=== PATIENT | male | born 1970 ===

== ENCOUNTER 2017-05-25 15:52 | Inpatient (IN) ==
--- NOTE | 2017-05-25 17:08 | Emergency Department Note ---
Lasha Andrea Manpreet, am scribing for, and in the presence of, Bogdan Ervin MD 16:53. Arcadio Andrea Charles R, MD, personally performed the services described in this documentation, ascribed by Emory Colby in my presence, and it is both accurate and complete 708 . Arrival - Arrival Chief Complaint: Nausea/Vomiting/Diarrhea ED Nursing Triage Note: Brought in by EMS c/o N/V-onset two days ago. Transfer from [facility] for further evaluation of pneumonia. Mode of Arrival: Stretcher Limitations: No Limitations Source: Patient Time Seen by Provider: 05/25/17 16:15 - History of Present Illness HPI Narrative: Pt is a 47 y/o male, with PMHx of HTN, CHF, IDDM, and NIDDM, who is transferred from [facility] for further evaluation for his PNA. Pt also c/o N/V onset two days ago and had a body temperature of 102 F when he went to [facility]. pt states he "ruben had diarrhea yesterday." Pt reports of breaking left foot in October and has a swollen left foot since. Pt's [facility]. Pt also c/o dry cough but denies SOB. Pt is on dialysis and goes MWF. No other pain/complaints reported to the ED. Onset (ago): day(s) (2 days ago) Allergies/Adverse Reactions: Allergies Allergy/AdvReac Type Severity Reaction Status Date / Time No Known Allergies Allergy Verified 05/25/17 16:00 Home Medications: Home Medications Medication Instructions Recorded Confirmed Type Metoprolol Succinate Xl [Toprol Xl] 50 mg PO DAILY #30 tablet 07/14/15 05/25/17 Rx Aspirin [Ecotrin] 81 mg PO QAM 09/09/15 05/25/17 History Pravastatin [Pravachol] 40 mg PO DAILY 09/09/15 05/25/17 History Sevelamer Carbonate Tab [Renvela 800 mg PO TID W/MEALS 04/21/16 05/25/17 History Tab] Review of System - Review of System 12 point system: reviewed and no additional remarkable complaints except as stated - Review of System Constitutional: Absent: chills, diaphoresis, fever (Temperature of 102 F when he went to [facility]) Respiratory: Absent: cough, respiratory distress, wheezing Cardiovascular: Absent: chest pain Gastrointestinal: Present: nausea, vomiting. Absent: abdominal pain, diarrhea Genitourinary male: Absent: dysuria Musculoskeletal: Absent: arm pain, back pain Skin: Absent: rash Neurological: Absent: headache, weakness, numbness, paresthesias Medical,Surgical,& Family Hx - Medical History Cardio: History of: CHF, Hypertension, Cardiovascular Problems (cardiomyopathy, NICM history of ) No history of: [place] Neurology: No history of: Seizures Endocrine: History of: Diabetes Mellitus (IDDM), Diabetes Mellitus (NIDDM) Rheumatology: No history of;: Rheumatoid Arthritis Respiratory: History of: Bronchitis, Obstructive Sleep Apnea, Pneumonia Renal: History of: Renal Failure No history of: Dialysis Genitourinary: No history of: Kidney Stones Musculoskeletal: No history of: Osteoporosis - Surgical History Cardiac Surgeries: Sugical HX of: Cardiac Catheterization Patient Denies: Cardiac Surgery Thoracic Surgeries: Patient denies;: Lobectomy Neurologic Surgeries: Patient denies: Neurologic Surgery HEENT Surgeries: Surgical HX of: Eye Surgery (had laser surgery on left eye for bleeding in eye), Tonsilectomy & Adenoidectomy Orthopedic Surgeries: Surgical HX of;: Orthopedic Surgery (R Foot) - Family History Family History: Reports;: Family Diabetes (Mother), Family Heart Disease (Mother ), Family Hypertension (Mother) Denies;: Family Anesthesia Reaction, Family Cancer, Family Psychiatric Problems, Family Stroke - Social History Smoking Status: Never smoker Frequency of Alcohol Use: None Type of Drug Use: None Exam Vital Signs: Vital Signs Temperature 98.9 F 05/25/17 15:56 Pulse Rate 90 05/25/17 15:56 Respiratory Rate 16 05/25/17 15:56 Blood Pressure 97/57 05/25/17 15:56 O2 Sat by Pulse Oximetry 96 05/25/17 15:56 - General General appearance: alert, in no apparent distress - Head Head exam: Present: atraumatic, normocephalic, normal inspection - Eye Eye exam: Present: normal appearance, PERRL, EOMI - ENT ENT exam: Present: normal exam, normal oropharynx, mucous membranes moist, TM's normal bilaterally - Neck Neck exam: Present: normal inspection, full ROM, trachea midline. Absent: tenderness - Chest Chest inspection: Present: normal inspection, symmetric chest wall rise. Absent : tenderness - Respiratory Respiratory exam: Present: normal lung sounds bilaterally. Absent: accessory muscle use, respiratory distress - Cardiovascular Cardiovascular exam: Present: regular rate, normal rhythm, normal heart sounds. Absent: murmur, rubs, gallop - Abdominal Exam Abdominal exam: Present: soft, normal bowel sounds. Absent: distention, tenderness, guarding - Extremities Exam Extremities exam: Present: normal inspection, full ROM, other (Increasing warm diabetic ulcer on bottom and top). Absent: tenderness - Back Exam Back exam: Present: normal inspection, full ROM. Absent: tenderness - Neurological Exam Neurological exam: Present: alert, oriented X3, CN II-XII intact, reflexes normal - Psychiatric Psychiatric exam: Present: normal affect, normal mood Course - Consultations Consultation #1: Hospitalist will admit patient Time: 17:01 Disposition Clinical Impression: Gastroenteritis, ESRD (end stage renal disease) on dialysis, Fever, Possible pneumonia, Generalized weakness, Nausea vomiting and diarrhea, Diabetic ulcer of left foot Case discussed with: patient Disposition: Still a Patient Condition: Stable Time of Disposition: 17:02
--- NOTE | 2017-05-25 17:42 | Hospitalist History & Physical ---
Assessment and Plan - Time spent with patient Time spent with patient: Greater than 30 minutes (1) Fever Status: Acute Assessment and plan: Patient has acute febrile illness. I do not see a distinct infiltrate on his chest x-ray however he has had a productive cough. He has been cultured and received IV Rocephin and [facility]. We will culture, hydrate for follow- up chest x-ray and continue antibiotic coverage. Current Visit: Yes (2) Diabetic ulcer of left foot Status: Chronic Assessment and plan: Patient has ulceration of the left foot. Will continue local care as well as IV antibiotics as noted above. At this time I see no fluctuance or drainage which would require any further intervention. Current Visit: Yes (3) Diabetes Status: Chronic Assessment and plan: Patient states he has diabetes mellitus but is currently on dietary measures only. Will place him on Accu-Cheks with sliding scale insulin. Current Visit: No Qualifiers: Diabetes mellitus type: type 2 Diabetes mellitus complication status: with kidney complications Diabetes mellitus complication detail: with nephropathy (4) Essential hypertension Status: Chronic Assessment and plan: Patient is currently well controlled and hemodynamically stable. Continue current medical regimen. Current Visit: No (5) ESRD (end stage renal disease) on dialysis Status: Chronic Assessment and plan: We will consult nephrology to assist with his hemodialysis while here. Current Visit: Yes History of Present Illness Chief complaint: Fever, nausea History of present illness: Mr. Higginbotham is a 47 year old male states that Monday he began feeling bad with a cough which been mildly productive of some yellowish phlegm along with some nausea, vomiting and poor appetite. He had dialysis yesterday and told him he did not feel good and he states they administered IV antibiotics at that time. Today he had fever up to approximately 102F went to [facility] where he was evaluated and ultimately transferred [facility] for possible community-acquired pneumonia. He has had a wound on the dorsum of his left foot as well as a callused ulceration plantar surface which he states are unchanged. He denies any chest pain, shortness breath, hematemesis, melena, hematochezia, dysuria, hematuria, urinary frequency urgency incontinence, diarrhea, constipation, focal motor weakness or paresthesias. He is on Monday hemodialysis and his winder helper is Dr. Mau Yu. He is a full code. Home Medications Medication Instructions Recorded Confirmed Type Metoprolol Succinate Xl [Toprol Xl] 50 mg PO DAILY #30 tablet 07/14/15 05/25/17 Rx Aspirin [Ecotrin] 81 mg PO QAM 09/09/15 05/25/17 History Pravastatin [Pravachol] 40 mg PO DAILY 09/09/15 05/25/17 History Sevelamer Carbonate Tab [Renvela 800 mg PO TID W/MEALS 04/21/16 05/25/17 History Tab] Allergies Allergy/AdvReac Type Severity Reaction Status Date / Time No Known Allergies Allergy Verified 05/25/17 16:00 Medical,Surgical,& Family Hx - Medical History Cardio: History of: CHF, Hypertension, Cardiovascular Problems (cardiomyopathy, NICM history of ) No history of: [place] Neurology: No history of: Seizures Endocrine: History of: Diabetes Mellitus (NIDDM) Rheumatology: No history of;: Rheumatoid Arthritis Respiratory: History of: Bronchitis, Obstructive Sleep Apnea, Pneumonia Renal: History of: Renal Failure No history of: Dialysis Genitourinary: No history of: Kidney Stones Musculoskeletal: No history of: Osteoporosis - Surgical History Cardiac Surgeries: Sugical HX of: Cardiac Catheterization Patient Denies: Cardiac Surgery Thoracic Surgeries: Patient denies;: Lobectomy Neurologic Surgeries: Patient denies: Neurologic Surgery HEENT Surgeries: Surgical HX of: Eye Surgery (had laser surgery on left eye for bleeding in eye), Tonsilectomy & Adenoidectomy Orthopedic Surgeries: Surgical HX of;: Orthopedic Surgery (R Foot) - Family History Family History: Reports;: Family Diabetes (Mother), Family Heart Disease (Mother ), Family Hypertension (Mother) Denies;: Family Anesthesia Reaction, Family Cancer, Family Psychiatric Problems, Family Stroke - Social History Smoking Status: Never smoker Frequency of Alcohol Use: None Type of Drug Use: None Marital Status: 12 point system: reviewed and no additional remarkable complaints except as stated Exam - Constitutional Vitals: Period Temp Pulse Resp BP Sys/Beth Pulse Ox Last 24 Hr 98.9 F-98.9 F 79-90 16-18 97-151/57-89 96-98 General appearance: no acute distress - Head Head exam: Present: normocephalic, atraumatic - Eye Eye exam: Present: EOMI. Absent: scleral icterus Pupils: Present: JJ - ENT ENT exam: Present: normal oropharynx - Neck Neck exam: Present: normal inspection. Absent: lymphadenopathy, meningismus, tenderness, thyromegaly - Respiratory Respiratory exam: Present: clear to auscultation bilaterally. Absent: rales, rhonchi, wheezes - Cardiovascular Cardiovascular exam: Present: regular rate and rhythm. Absent: systolic murmur , tachycardia - GI/Abdominal GI/Abdominal exam: Present: normal bowel sounds, soft. Absent: distended, mass , tenderness, rebound - Extremities Exam Extremities exam: Present: other (Small ulceration on the dorsum of the left foot with a dressing in place, no fluctuance or drainage detected. Callused ulceration on the plantar surface which is mildly tender to palpation without fluctuance or drainage detected). Absent: calf tenderness, edema - Neurological Exam Neurological exam: Present: alert, oriented X3, CN II-XII intact. Absent: motor sensory deficit - Psychiatric Psychiatric exam: Present: normal affect, normal mood. Absent: agitated, anxious - Skin Skin exam: Present: warm, dry Results - Labs Lab Results: I have reviewed the past 24 hour labs Labs: Laboratory studies from [facility] have been completely reviewed. - Diagnostic Findings Procedure: Chest x-ray: image reviewed by me
--- NOTE | 2017-05-25 17:50 | XRay Report ---
Left foot, 3 views. Indication: Diabetic foot ulcer. No previous study. Along the plantar aspect of the foot laterally there is a very large focus of soft tissue swelling with a central superficial ulcer. No radiodense foreign body is seen. There is generalized edema of the entire foot, and there is small vessel atherosclerotic disease as is seen with diabetes. There is pes planus. At the tarsal-metatarsal joints, there is subluxation and dense sclerosis and osteophyte formation. Along the plantar surface of the cuboid, there is cortical loss and irregularity consistent with active osteomyelitis. Impression: Prominent plantar foot ulceration, with a large focus of soft tissue swelling, with possible associated abscess. The cuboid demonstrates cortical loss suspicious for acute active osteomyelitis. There are findings suggesting neuropathic joint. There are subluxations, prominent sclerotic change, and malalignment at the tarsal-metatarsal joints. . This could be from an old Lisfranc injury or from neuropathic joint, or from chronic osteomyelitis. PROCEDURE INTERPRETED AT [facility] DEPARTMENT OF RADIOLOGY Final Report Signed by: Dr. Denice Walter
[2017-05-25] MEDS ORDERED: ONDANSETRON 4 MG/2 ML VIAL IV PRN (19:17)
[2017-05-25] MEDS ORDERED: LEVOFLOXACIN INJ 750 MG in PREMIX 1 EACH IV SCH (19:17)
[2017-05-25] MEDS ORDERED: DEXTROSE 50% 25 GM/50 ML SYRINGE IV PRN (19:17)
[2017-05-25] MEDS ORDERED: GLUCAGON 1 MG VIAL IM PRN (19:17)
[2017-05-25] MEDS ORDERED: PNEUMOCOCCAL VACCINE (13 VALENT) 0.5 ML SYRINGE IM ONE (19:54)
[2017-05-25 19:57] LABS: Calcium 7.1 MG/DL (8.5-10.1); Osmolality,Calculated 283.1 MOS/KG (273-304); Potassium 3.9 MMOL/L (3.5-5.1)
[2017-05-25] MEDS ORDERED: PIPERACILLIN/TAZOBACTAM 3,375 MG in SODIUM CHLORIDE 0.9% 50 ML IV SCH (21:00)
[2017-05-25] MEDS ORDERED: LEVOFLOXACIN INJ 750 MG in PREMIX 1 EACH IV ONE (21:00)
[2017-05-25] MEDS: ENOXAPARIN 30 MG/0.3 ML SYRINGE SUBCUT SCH (22:13)
[2017-05-25] MEDS: INSULIN LISPRO 100 UNIT/ML SUBCUT SCH (22:34)
[2017-05-26 06:54] LABS: Basophils # 0.1 10*3/uL (0.0-0.2); Basophils % 0.5 % (0.0-0.8); Eosinophils # 0.2 10*3/uL (0.0-0.87); Hematocrit 30.7 VOL% (42.0-52.0); Hemoglobin 10.5 GM/DL (14.0-18.0); Immature Granulocytes % 0.5 %; Immature Granulocytes Absolute 0.08 #; Lymphocytes # 1.3 10*3/uL (1.4-4.0); Lymphocytes % 7.7 % (21.2-54.2); Mean Corpuscular HGB Conc 34.2 GM/DL (32-36); Mean Corpuscular Hemoglobin 33 PG (27-34); Mean Corpuscular Volume 97.5 FL (87-102); Mean Platelet Volume 11.3 FL (9.6-12.0); Monocytes # 1.8 10*3/uL (0.11-0.8); Monocytes % 10.9 % (1.7-12.7); Neutrophils # 13.1 10*3/uL (1.4-7.4); Neutrophils % 79.4 % (38.7-73.9); Platelet Count 129 T/CUMM (130-400); Red Blood Count 3.15 MC/CUMM (3.8-5.5); Red Cell Distribution Width 14.9 % (9.3-17.3); White Blood Count 16.5 T/CUMM (4-12)
[2017-05-26 07:20] LABS: Calcium 7.5 MG/DL (8.5-10.1); Osmolality,Calculated 288.1 MOS/KG (273-304); Potassium 4.4 MMOL/L (3.5-5.1)
--- NOTE | 2017-05-26 07:33 | XRay Report ---
XR chest 2V Indication: Dialysis catheter Comparison: 21 April 2016 Findings: The heart and mediastinum are normal in size and configuration. Previous catheter is been removed. The pulmonary vascularity is normal in caliber. No lung infiltrates, effusions, pneumothorax or other abnormality is demonstrated. Impression: No acute cardiopulmonary findings. PROCEDURE INTERPRETED AT [facility] [place] DEPARTMENT OF RADIOLOGY Final Report Signed by: Dr. Kip Bojorquez
[2017-05-26] MEDS: PRAVASTATIN 40 MG TABLET PO SCH (08:53)
[2017-05-26] MEDS: SEVELAMER CARBONATE 800 MG TABLET PO SCH ×3 (08:53→18:23)
[2017-05-26] MEDS: ASPIRIN EC 81 MG TABLET PO SCH (08:53)
[2017-05-26] MEDS: INSULIN LISPRO 100 UNIT/ML SUBCUT SCH ×4 (08:54→21:01)
[2017-05-26] MEDS ORDERED: METOPROLOL SUCCINATE XL 50 MG TABLET PO SCH (09:00)
--- NOTE | 2017-05-26 10:54 | General Surgery Consult Note ---
Assessment and Plan - Time spent with patient Time spent with patient: Less than 30 minutes (1) Diabetic ulcer of left foot Status: Chronic Assessment and plan: Impression: Diabetic ulceration of the left foot with dark thick eschar doubt there is a underlying abscess but certainly needs debridement Plan: Start wound care and go ahead and do a debridement tomorrow Current Visit: Yes Qualifiers: Diabetes mellitus type: type 2 Non-pressure ulcer stage: unspecified non- pressure ulcer stage (2) Charcot foot due to diabetes mellitus Status: Acute Assessment and plan: Impression: Charcot foot deformity secondary to his diabetes of the left foot Plan: Doubt orthopedics can help us at this point will try to get the wounds cleaned up in case we need to do something different but we need to count to find a way to offload this leg as much possible Current Visit: Yes (3) Diabetic ulcer of right foot associated with diabetes mellitus due to underlying condition Status: Acute Assessment and plan: Impression: Diabetic ulcer right foot Plan: Debridement and wound care Current Visit: Yes Qualifiers: Diabetic foot ulcer location: midfoot Non-pressure ulcer stage: with fat layer exposed Qualified Code(s): E08.621 - Diabetes mellitus due to underlying condition with foot ulcer; L97.412 - Non-pressure chronic ulcer of right heel and midfoot with fat layer exposed (4) Chronic renal failure Status: Chronic Assessment and plan: Impression: Chronic renal failure dialysis patient Plan: Medical management Current Visit: No Qualifiers: Chronic kidney disease stage: stage 4 (severe) Qualified Code(s): N18.4 - Chronic kidney disease, stage 4 (severe) (5) Diabetes Status: Chronic Assessment and plan: Impression: Diabetes mellitus insulin-dependent Plan: Maintain good control and medical management Current Visit: No Qualifiers: Diabetes mellitus type: type 2 Diabetes mellitus complication status: with kidney complications Diabetes mellitus complication detail: with nephropathy History of Present Illness Chief complaint: Diabetic ulcer left foot and right foot History of present illness: Mr. Higginbotham is a 47 year old male diabetic dialysis patient who apparently developed some ulceration and chronic fracturing of his left foot back in October at which time they sent him to the wound care center in [place]. It is unclear why they went in that direction or so but apparently I cannot tell that he has had much care at this point. He clearly has evidence of a Charcot foot deformity with a plantar ulcer that is no has some swelling and not sure he has any abscess to it. This may just be soft tissues swelling but it has a dark thick eschar that certainly will not heal unless this is debrided. X-rays show a lot of old chronic fracturing there I do not think know that they really are truly done indicate that he has osteo-and that may have to be determined by an MRI. On further examination though there is an ulcer on the plantar surface of the right foot that was covered up and not easily seen and this may be a problem if we do not get this under control I get that area situated. There is no deformity of the right foot at this time but certainly potentially he could develop. He seems to have hair down to his ankles which suggest his circulation may be okay at this point will double check that to see how things will heal. Home Medications Medication Instructions Recorded Confirmed Type Metoprolol Succinate Xl [Toprol Xl] 50 mg PO DAILY #30 tablet 07/14/15 05/25/17 Rx Aspirin [Ecotrin] 81 mg PO QAM 09/09/15 05/25/17 History Pravastatin [Pravachol] 40 mg PO DAILY 09/09/15 05/25/17 History Sevelamer Carbonate Tab [Renvela 800 mg PO TID W/MEALS 04/21/16 05/25/17 History Tab] Allergies Allergy/AdvReac Type Severity Reaction Status Date / Time No Known Allergies Allergy Verified 05/25/17 16:00 Medical,Surgical,& Family Hx - Medical History Cardio: History of: CHF, Hypertension, Cardiovascular Problems (cardiomyopathy, NICM history of ) No history of: [place] Neurology: No history of: Seizures Endocrine: History of: Diabetes Mellitus (IDDM), Diabetes Mellitus (NIDDM) Rheumatology: No history of;: Rheumatoid Arthritis Respiratory: History of: Bronchitis, Obstructive Sleep Apnea, Pneumonia Renal: History of: Dialysis (last dialysis yesterday), Renal Failure Genitourinary: No history of: Kidney Stones Musculoskeletal: No history of: Osteoporosis - Surgical History Cardiac Surgeries: Sugical HX of: Cardiac Catheterization Patient Denies: Cardiac Surgery Thoracic Surgeries: Patient denies;: Lobectomy Neurologic Surgeries: Patient denies: Neurologic Surgery HEENT Surgeries: Surgical HX of: Eye Surgery (had laser surgery on left eye for bleeding in eye), Tonsilectomy & Adenoidectomy Orthopedic Surgeries: Surgical HX of;: Orthopedic Surgery (R Foot) - Family History Family History: Reports;: Family Diabetes (Mother), Family Heart Disease (Mother ), Family Hypertension (Mother) Denies;: Family Anesthesia Reaction, Family Cancer, Family Psychiatric Problems, Family Stroke - Social History Smoking Status: Never smoker Frequency of Alcohol Use: None Type of Drug Use: None 12 point system: reviewed and no additional remarkable complaints except as stated Exam - Constitutional Vitals: Period Temp Pulse Resp BP Sys/Beth Pulse Ox Last 24 Hr 98.3 F-99.2 F 78-90 16-19 97-160/57-96 93-98 General appearance: mild distress - Head Head exam: Present: normal inspection - ENT ENT exam: Present: normal exam - Neck Neck exam: Present: normal inspection - Respiratory Respiratory exam: Present: clear to auscultation bilaterally, rales - Cardiovascular Cardiovascular exam: Present: RRR - GI/Abdominal GI/Abdominal exam: Present: hypoactive bowel sounds, soft - Extremities Exam Extremities exam: Present: other (There is clubbing of the left foot with a large ulcer on the plantar surface lateral aspect with a dark thick eschar without erythematous changes or unusual drainage present. Right foot has an ulcer on her about the fourth metatarsal head that looks fairly clean without drainage at this time. There is hair on the legs down to the ankle at this time I think I can feel a 2+ pulse dorsalis pedis on the left foot.) - Back Exam Back exam: Present: normal inspection - Neurological Exam Neurological exam: Present: alert, oriented X3, CN II-XII intact - Skin Skin exam: Present: normal color, warm, dry Results - Labs CBC & BMP: 05/26/17 06:17 05/26/17 06:17 Lab Results: I have reviewed the past 24 hour labs
[2017-05-26] MEDS ORDERED: ceFAZolin 2,000 MG in PREMIX 1 EACH IV ONE (11:01)
--- NOTE | 2017-05-26 11:21 | EKG Report ---
Stationary ECG Study [facility] Test Date: 05/26/2017 11:19:05 AM Pat Name: HERNANDEZ STRAUSS Department: Room: 330 Gender: M Line Ordering Clinician: THERESA : 1970 Requested by: Devin Adame Order Number: [id number] Reading MD: ZARIA SANTOYO Intervals [place] Rate: 82 P: 62 AK: 150 QRS: -7 QRSD: 97 T: 126 QT: 411 QTc: 450 Interpretive Statements SINUS RHYTHM ST DEVIATION AND MODERATE T-WAVE ABNORMALITY, CONSIDER LATERAL ISCHEMIA Electronically Signed On 05-27-17 18:40:48 CDT by ZARIA SANTOYO [email or web address]
[2017-05-26] MEDS ORDERED: VANCOMYCIN INJ 1,000 MG in SODIUM CHLORIDE 0.9% 100 ML IV PRN (11:53)
--- NOTE | 2017-05-26 13:13 | Nephrology Consult Note ---
History of Present Illness Chief complaint: Fever and chills and a ESRD patient History of present illness: Mr. Higginbotham is a 47 year old male who dialyzes on a Monday basis in [facility]. Patient was admitted to the hospital today from [facility] for fever and chills and feeling poorly. The patient states he started to feel poorly about 4 days prior to his admission. He was having sweats and fever at 102. The patient has been getting some wound care for some ulcerations on his left foot that has multiple fractures that were sustained about 8 months ago. The patient has also developed a ulceration on his right foot. The patient has also had some associated headaches and cough. The patient states his cough is been nonproductive. Patient does not have a dialysis catheter in his neck he had one in several months ago. He currently dialyzes through a fistula in his forearm. ROS: Head -positive headaches ENT -positive sore throat Lymphatics - denies lymphadenopathy Hematology - denies bleeding problems Heart - denies chest pain Lungs - denies shortness of breath Abdomen - denies abdominal pain, he had some vomiting yesterday Musculoskeletal - denies arthritis, he complains of some soreness in his left leg Skin - denies rash Neurology - denies stroke General -positive fever PE: General: in no acute distress Eyes: Pupils are round and reactive, conjunctivae are clear ENT: Nose is clear, O/P is benign Neck: Supple, no thyromegaly Lymphatics: No cervical, supraclavicular or axillary adenopathy Heart: Regular rate and rhythm, trace pretibial edema on the left Lungs: Clear to auscultation anteriorly, chest expansion symmetric Abdomen: Soft, normoactive bowel sounds, no hepatomegaly Musculoskeletal: No joint erythema or effusions, he has 2 ulcerations on his left foot and one on the bottom of his right foot, his left foot is swollen and has some deformity Skin: Normal turgor, normal hydration, no rash Neuro/Psych: Alert and cooperative with fair insight Home Medications Medication Instructions Recorded Confirmed Type Metoprolol Succinate Xl [Toprol Xl] 50 mg PO DAILY #30 tablet 07/14/15 05/25/17 Rx Aspirin [Ecotrin] 81 mg PO QAM 09/09/15 05/25/17 History Pravastatin [Pravachol] 40 mg PO DAILY 09/09/15 05/25/17 History Sevelamer Carbonate Tab [Renvela 800 mg PO TID W/MEALS 04/21/16 05/25/17 History Tab] Allergies Allergy/AdvReac Type Severity Reaction Status Date / Time No Known Allergies Allergy Verified 05/25/17 16:00 Medical,Surgical,& Family Hx - Medical History Cardio: History of: CHF, Hypertension, Cardiovascular Problems (cardiomyopathy, NICM history of ) No history of: [place] Neurology: No history of: Seizures Endocrine: History of: Diabetes Mellitus (IDDM), Diabetes Mellitus (NIDDM) Rheumatology: No history of;: Rheumatoid Arthritis Respiratory: History of: Bronchitis, Obstructive Sleep Apnea, Pneumonia Renal: History of: Dialysis (last dialysis yesterday), Renal Failure Genitourinary: No history of: Kidney Stones Musculoskeletal: No history of: Osteoporosis - Surgical History Cardiac Surgeries: Sugical HX of: Cardiac Catheterization Patient Denies: Cardiac Surgery Thoracic Surgeries: Patient denies;: Lobectomy Neurologic Surgeries: Patient denies: Neurologic Surgery HEENT Surgeries: Surgical HX of: Eye Surgery (had laser surgery on left eye for bleeding in eye), Tonsilectomy & Adenoidectomy Orthopedic Surgeries: Surgical HX of;: Orthopedic Surgery (R Foot) - Family History Family History: Reports;: Family Diabetes (Mother), Family Heart Disease (Mother ), Family Hypertension (Mother) Denies;: Family Anesthesia Reaction, Family Cancer, Family Psychiatric Problems, Family Stroke - Social History Smoking Status: Never smoker Frequency of Alcohol Use: None Type of Drug Use: None Exam - Vital Signs Vital signs: Period Temp Pulse Resp BP Sys/Beth Pulse Ox Last 24 Hr 98.3 F-99.2 F 78-90 16-19 97-162/57-96 93-98 Results - Labs CBC & BMP: 05/26/17 06:17 05/26/17 06:17 Assessment and Plan (1) Charcot foot due to diabetes mellitus Status: Acute Assessment and plan: Management per Dr. Adame Current Visit: Yes (2) Diabetic ulcer of right foot associated with diabetes mellitus due to underlying condition Status: Acute Current Visit: Yes Qualifiers: Diabetic foot ulcer location: midfoot Non-pressure ulcer stage: with fat layer exposed Qualified Code(s): E08.621 - Diabetes mellitus due to underlying condition with foot ulcer; L97.412 - Non-pressure chronic ulcer of right heel and midfoot with fat layer exposed (3) Fever Status: Acute Assessment and plan: Agree with IV antibiotics Current Visit: Yes (4) Generalized weakness Status: Acute Current Visit: Yes (5) ESRD (end stage renal disease) on dialysis Status: Chronic Assessment and plan: We will continue hemodialysis support on a Monday basis. Current Visit: Yes (6) Secondary hyperparathyroidism Status: Acute Current Visit: No (7) Diabetes Status: Chronic Current Visit: No Qualifiers: Diabetes mellitus type: type 2 Diabetes mellitus complication status: with kidney complications Diabetes mellitus complication detail: with nephropathy (8) Essential hypertension Status: Chronic Current Visit: No
[2017-05-26] MEDS: PIPERACILLIN/TAZOBACTAM 3,375 MG in SODIUM CHLORIDE 0.9% 100 ML IV SCH ×2 (13:39→13:54)
--- NOTE | 2017-05-26 14:11 | Hospitalist Progress Note ---
Assessment and Plan - Time spent with patient Time spent with patient: Less than 30 minutes (1) Congestive heart failure Status: Chronic Assessment and plan: 47-year-old male with history of diabetes, hypertension, Charcot foot, end-stage renal disease on hemodialysis admitted by the hospitalist on 05/25/2017 through the emergency room as a transfer from [facility] with what was thought to be pneumonia. Patient was having fever and elevated white count but he does not have pneumonia. He does have a left Charcot deformity with multiple ulcers and probable abscess. X-ray of the foot shows possible associated abscess on the plantar aspect with cortical loss suspicious for acute active osteomyelitis and neuropathic joint. Dr. Adame from surgery has been consulted and is taking him to the OR in the morning for debridement. May need eventual assistance from orthopedic surgery for evaluation of his Charcot foot. Patient is on Zosyn and vancomycin. Dr. Yu from nephrology has also been consulted so patient can dialyze from fistula on Monday. Patient's blood sugars are under decent control here by sliding scale insulin. Diabetes educators have been in to discuss diet plan with him. Patient's blood pressures have also been elevated and he is on Toprol 50 mg p.o. daily. Will discuss this with Dr. Swanson to see if she wants to increase this or add further medication. Dr. Swanson will see and examine patient and further recommendations to follow. Current Visit: No Qualifiers: Congestive heart failure type: systolic Congestive heart failure chronicity : acute on chronic Qualified Code(s): I50.23 - Acute on chronic systolic ( congestive) heart failure (2) Diabetes Status: Chronic Current Visit: No Qualifiers: Diabetes mellitus type: type 2 Diabetes mellitus complication status: with kidney complications Diabetes mellitus complication detail: with nephropathy (3) Essential hypertension Status: Chronic Current Visit: No (4) ESRD (end stage renal disease) on dialysis Status: Chronic Current Visit: Yes (5) Diabetic ulcer of left foot Status: Chronic Current Visit: Yes Qualifiers: Diabetes mellitus type: type 2 Non-pressure ulcer stage: unspecified non- pressure ulcer stage (6) Charcot foot due to diabetes mellitus Status: Acute Current Visit: Yes Hospitalist: Subjective Interval history: Patient states he feels okay and he is being educated as we speak by diabetes educators. He seems to be enthralled with her information and wants to do better. He states both of his lower extremities are numb and he gets shooting pains in his right foot sometimes. Exam - Constitutional Vitals: Period Temp Pulse Resp BP Sys/Beth Pulse Ox Last 24 Hr 98.3 F-99.2 F 78-90 16-19 97-162/57-96 93-98 Exam: 47-year-old male, no acute distress, alert and oriented Chest clear CV regular rate and rhythm Abdomen soft nontender Extremities no edema right foot, left foot with Charcot deformity and plantar and dorsal wounds noted. Results - Labs CBC & BMP: 05/26/17 06:17 05/26/17 06:17 Lab Results: I have reviewed the past 24 hour labs Quality Measures - VTE Contraindication to Pharmacological VTE Prophylaxis: Clinical assessment deems Pt at low risk, no prophalaxis needed Contraindication to Mechanical VTE Prophylaxis: Local Inflammation
--- NOTE | 2017-05-26 14:41 | Dialysis Note ---
Dialysis Note - Dialysis Note Patient seen on hemodialysis he is tolerating this well will continue his treatment unchanged.
[2017-05-26] MEDS: GABAPENTIN 100 MG CAPSULE PO SCH ×2 (15:03→21:03)
[2017-05-26] MEDS ORDERED: VANCOMYCIN INJ 2,000 MG in SODIUM CHLORIDE 0.9% 500 ML IV ONE (18:00)
[2017-05-26] MEDS: ENOXAPARIN 30 MG/0.3 ML SYRINGE SUBCUT SCH (19:50)
[2017-05-26] MEDS: METOPROLOL SUCCINATE XL 50 MG TABLET PO SCH (21:04)
[2017-05-26] MEDS: ACETAMINOPHEN 325 MG TABLET PO PRN (21:04)
[2017-05-27] MEDS: PIPERACILLIN/TAZOBACTAM 3,375 MG in SODIUM CHLORIDE 0.9% 100 ML IV SCH ×2 (01:07→12:46)
[2017-05-27 06:01] LABS: Basophils # 0.1 10*3/uL (0.0-0.2); Basophils % 0.7 % (0.0-0.8); Eosinophils # 0.5 10*3/uL (0.0-0.87); Eosinophils % 3.1 % (0.00-10.9); Hematocrit 32.5 VOL% (42.0-52.0); Hemoglobin 11.2 GM/DL (14.0-18.0); Immature Granulocytes % 0.5 %; Immature Granulocytes Absolute 0.08 #; Lymphocytes # 1.6 10*3/uL (1.4-4.0); Mean Corpuscular HGB Conc 34.5 GM/DL (32-36); Mean Corpuscular Hemoglobin 34 PG (27-34); Mean Corpuscular Volume 97.9 FL (87-102); Mean Platelet Volume 11.1 FL (9.6-12.0); Monocytes # 1.6 10*3/uL (0.11-0.8); Monocytes % 10.8 % (1.7-12.7); Neutrophils # 10.9 10*3/uL (1.4-7.4); Neutrophils % 73.9 % (38.7-73.9); Platelet Count 151 T/CUMM (130-400); Red Blood Count 3.32 MC/CUMM (3.8-5.5); Red Cell Distribution Width 14.7 % (9.3-17.3); White Blood Count 14.8 T/CUMM (4-12)
[2017-05-27 06:24] LABS: INR 1.1; Partial Thromboplastin Time 37.6 SECS (0-40)
[2017-05-27 06:53] LABS: Albumin 2.3 G/DL (3.4-5.0); Bilirubin,Total 0.9 MG/DL (0.2-1.0); Calcium 8.1 MG/DL (8.5-10.1); Potassium 4.5 MMOL/L (3.5-5.1); Total Protein 7.5 G/DL (6.4-8.3)
[2017-05-27] MEDS: METOPROLOL SUCCINATE XL 50 MG TABLET PO SCH ×2 (07:50→20:41)
[2017-05-27] MEDS: SEVELAMER CARBONATE 800 MG TABLET PO SCH ×3 (08:00→17:12)
[2017-05-27] MEDS: INSULIN LISPRO 100 UNIT/ML SUBCUT SCH ×4 (08:04→20:42)
[2017-05-27] MEDS: SODIUM CHLORIDE 0.9% 1,000 ML IV SCH (08:27)
[2017-05-27] MEDS: GABAPENTIN 100 MG CAPSULE PO SCH ×3 (09:00→20:42)
[2017-05-27] MEDS ORDERED: HYDROmorphone 2 MG/1 ML VIAL IV PRN (09:10)
[2017-05-27] MEDS ORDERED: CHLORHEXIDINE 4% SOLN 118 ML BOTTLE TOP ONE (09:15)
--- NOTE | 2017-05-27 09:27 | Operative Note ---
Date of procedure: 05/27/17 Pre-op diagnosis: Diabetic ulcer left and right feet Post-op diagnosis: other (Diabetic ulcer left foot with deep space abscess diabetic ulcer right foot/) Procedure: Operative note: Preoperative diagnosis: 1. Diabetic ulcer plantar surface lateral aspect left foot with Charcot's deformity 2. Diabetic ulceration third metatarsal head plantar surface right foot Postoperative diagnosis: 1. Diabetic ulceration left foot with deep space abscess 2. Diabetic ulceration right foot Procedure: 1. Excisional debridement of diabetic ulcer left foot of skin deep space necrotic and infected subcutaneous tissue and fascia 2. Excisional debridement of skin subtenons tissue ulcer of the right foot Surgeon Dr. Adame Anesthesia general Brief history: 47-year-old [place] male diabetic dialysis patient who comes in with a marked area of swelling on the lateral aspect of the left foot with a necrotic diabetic ulcer with thick callus about it. He has Charcot's deformity of the foot with underlying multiple little fractures seen on his x-rays. There is a fair amount of prominence underneath this ulcer and is difficult to know whether this is just chronic swollen tissue or whether this represents infection in this area. No clear erythematous changes present that we are seeing on the foot at this time. He also has an ulcer under the about the third metatarsal head of the right foot plantar surface that has some callus about it but does not look very deep at this time. Procedure: With patient in supine position prepped and draped in a sterile fashion timeout and antibiotics completed we approach this area of the ulcer of the left foot the pre-debridement measures 2 x 2 x 0 cm. The ulcer on the right foot measures 1 x 0.8 x 0.2 cm in size. At this point I approach the area of the left foot that has a deformity and this large ulcer present with a good necrotic area in it. At that point time will begin to shave a little callus off this image then as I began to remove the thick dark eschar we encountered some purulent drainage that we then cultured with swabs. I then debrided this skin and necrotic subtenons tissue here encountering some deep infected necrotic fatty tissue. I continue to debride with the scissors this deep fatty tissue encountered some more purulence onto the lateral aspect of it. I debrided that tissue to I did not see any further drainage at this point debriding little fascia on that side. Once we had debrided all this area then washed irrigated with saline solution use light cauterization control bleeding. We now have a wound that is 3 x 3 x 2 cm in size. There is little eschar on the medial dorsum of the foot that I just carefully removed we just small rale superficial area underneath. At that point I like to go ahead and dressed these by putting a Dakin's wet fluff into this large ulcer of the plantar surface and just some bacitracin on the dorsum of the foot. We then wrapped it up with a cast padding Covan. Next moved to the right foot with the ulcer under the plantar surface. At this point I took the knife and just begin debride that callus down and away until I could see the ulcer clearly. There was some necrotic skin edges that I then took a knife and debrided around as well as some necrotic fatty granulating tissue in the base of this ulcer that we debrided away to get a good clean base at this time. At that point this look clean and dry and the post debridement ulcer on the right was 1 x 0.6 x 0.3 cm in size. We then put bacitracin Xeroform and wrapped this up with cast padding Covan. Patient was taken recovery room. Estimated blood loss was 15 cc Sponge count correct 2 Drains none Complications none Condition stable satisfactory Surgeon / Physician: Devin Adame Estimated blood loss: other (15 cc) Specimens: other (Swab and tissue cultures) Condition: stable Disposition: floor Results - Labs CBC & BMP: 05/27/17 04:44 05/27/17 04:44 Discharge Plan - Discharge Medications No Action Metoprolol Succinate Xl [Toprol Xl] 50 mg PO DAILY #30 tablet Pravastatin [Pravachol] 40 mg PO DAILY Aspirin [Ecotrin] 81 mg PO QAM Sevelamer Carbonate Tab [Renvela Tab] 800 mg PO TID W/MEALS - Follow Up or Referral - Forms/Instructions
--- NOTE | 2017-05-27 11:42 | Hospitalist Progress Note ---
<Samara Leigh - Last Filed: 05/27/17 11:39> Assessment and Plan - Time spent with patient Time spent with patient: Less than 30 minutes (1) Congestive heart failure Status: Chronic Assessment and plan: 47-year-old male with history of diabetes, hypertension, Charcot foot, end-stage renal disease on hemodialysis admitted by the hospitalist on 05/25/2017 through the emergency room as a transfer from the [facility] with what was thought to be pneumonia. Patient was having fever and elevated white count but he does not have pneumonia. He does have a left Charcot deformity with multiple ulcers and probable abscess. X-ray of the foot shows possible associated abscess on the plantar aspect with cortical loss suspicious for acute active osteomyelitis and neuropathic joint. Dr. Adame from surgery has been consulted and is taking him to the OR in the morning for debridement. May need eventual assistance from orthopedic surgery for evaluation of his Charcot foot. Patient is on Zosyn and vancomycin. Dr. Yu from nephrology has also been consulted so patient can dialyze from fistula on Monday. Patient's blood sugars are under decent control here by sliding scale insulin. Diabetes educators have been in to discuss diet plan with him. Patient's blood pressures have also been elevated and he is on Toprol 50 mg p.o. daily. Will discuss this with Dr. Swanson to see if she wants to increase this or add further medication. Dr. Swanson will see and examine patient and further recommendations to follow. 05/27/2017 Mr. Higginbotham just returned from surgery by Dr. Adame this morning. He had debridement of diabetic ulcer of the left foot and he found a deep space necrotic and infected subcutaneous tissue and fascia. He also debrided a right foot ulcer as well. Patient is afebrile and his vital signs are stable. His white count is down to 14.8 and his blood sugars are doing well. Blood culture so far are negative, wound cultures are pending. Dr. Swanson will see and examine patient and further recommendations to follow. Current Visit: No Qualifiers: Congestive heart failure type: systolic Congestive heart failure chronicity : acute on chronic Qualified Code(s): I50.23 - Acute on chronic systolic ( congestive) heart failure (2) Diabetes Status: Chronic Current Visit: No Qualifiers: Diabetes mellitus type: type 2 Diabetes mellitus complication status: with kidney complications Diabetes mellitus complication detail: with nephropathy (3) Essential hypertension Status: Chronic Current Visit: No (4) ESRD (end stage renal disease) on dialysis Status: Chronic Current Visit: Yes (5) Diabetic ulcer of left foot Status: Chronic Current Visit: Yes Qualifiers: Diabetes mellitus type: type 2 Non-pressure ulcer stage: unspecified non- pressure ulcer stage (6) Charcot foot due to diabetes mellitus Status: Acute Current Visit: Yes Hospitalist: Subjective Interval history: Patient still a little groggy from surgery. No complaints this morning. Exam - Constitutional Vitals: Period Temp Pulse Resp BP Sys/Beth Pulse Ox Last 24 Hr 97.3 F-101.1 F 65-80 14-20 85-136/52-78 95-99 Exam: 47-year-old male, no acute distress, alert and oriented Chest clear CV regular rate and rhythm Abdomen soft nontender Extremities right and left foot with surgical dressings clean and dry Results - Labs CBC & BMP: 05/27/17 04:44 05/27/17 04:44 Lab Results: I have reviewed the past 24 hour labs Quality Measures - VTE Contraindication to Pharmacological VTE Prophylaxis: Clinical assessment deems Pt at low risk, no prophalaxis needed Contraindication to Mechanical VTE Prophylaxis: Local Inflammation <Prudence Swanson - Last Filed: 05/27/17 17:23> Hospitalist: Subjective Interval history: Patient had no new complaints. Exam - Constitutional Vitals: Period Temp Pulse Resp BP Sys/Beth Pulse Ox Last 24 Hr 97.3 F-101.1 F 65-80 14-20 85-136/47-78 95-100 Results - Labs CBC & BMP: 05/27/17 04:44 05/27/17 04:44
--- NOTE | 2017-05-27 12:38 | Nephrology Progress Note ---
Nephrology - PN: Subj Interval history: Patient denies shortness of breath. Review of systems GI denies nausea or vomiting, musculoskeletal-patient status post debridement of his foot wounds Physical exam general the patient is in no acute distress Assessment/plan 1. End-stage renal disease continue hemodialysis 2. Febrile illness-patient status post exploration of his foot wounds he was noted to have an abscess in 1 of his wounds he continues on IV bionics 3. Diabetes mellitus this is controlled 4. Hypertension this is controlled Exam (PN)-Nephrology - Vital Signs Vital signs: Period Temp Pulse Resp BP Sys/Beth Pulse Ox Last 24 Hr 97.3 F-101.1 F 65-80 14-20 85-136/52-78 95-99 - Lab 05/27/17 04:44 05/27/17 04:44 Most recent lab results Calcium 8.1 MG/DL (8.5-10.1) L 05/27/17 04:44 Assessment and Plan (1) Charcot foot due to diabetes mellitus Status: Acute Assessment and plan: Management per Dr. Adame Current Visit: Yes (2) Diabetic ulcer of right foot associated with diabetes mellitus due to underlying condition Status: Acute Current Visit: Yes Qualifiers: Diabetic foot ulcer location: midfoot Non-pressure ulcer stage: with fat layer exposed Qualified Code(s): E08.621 - Diabetes mellitus due to underlying condition with foot ulcer; L97.412 - Non-pressure chronic ulcer of right heel and midfoot with fat layer exposed (3) Fever Status: Acute Assessment and plan: Agree with IV antibiotics Current Visit: Yes (4) Generalized weakness Status: Acute Current Visit: Yes (5) ESRD (end stage renal disease) on dialysis Status: Chronic Assessment and plan: We will continue hemodialysis support on a Monday basis. Current Visit: Yes (6) Secondary hyperparathyroidism Status: Acute Current Visit: No (7) Diabetes Status: Chronic Current Visit: No Qualifiers: Diabetes mellitus type: type 2 Diabetes mellitus complication status: with kidney complications Diabetes mellitus complication detail: with nephropathy (8) Essential hypertension Status: Chronic Current Visit: No
[2017-05-27] MEDS: ASPIRIN EC 81 MG TABLET PO SCH (12:45)
[2017-05-27] MEDS: PRAVASTATIN 40 MG TABLET PO SCH (12:46)
--- NOTE | 2017-05-27 12:53 | Anesthesia Post-Op ---
Anesthesia Post OP - Post Ansesthetic Evaluation Patient seen in post op: Yes Resp: within normal limits CV: within normal limits Mental: within normal limits Temp: within normal limits [id number]: within normal limits Nausea and Vomiting: within normal limits Pain: within normal limits
[2017-05-27] MEDS ORDERED: PROPOFOL 200 MG/20 ML VIAL IV ONE (12:55)
[2017-05-27] MEDS ORDERED: ONDANSETRON 4 MG/2 ML VIAL ONE (12:55)
[2017-05-27] MEDS ORDERED: ACETAMINOPHEN 1,000 MG/100 ML VIAL IV ONE (12:56)
[2017-05-27] MEDS ORDERED: SEVOFLURANE 1 UNIT/15 MINUTE INH ONE (12:58)
[2017-05-27] MEDS: ceFAZolin 2,000 MG in PREMIX 1 EACH IV SCH ×2 (17:05→23:50)
[2017-05-27] MEDS: ENOXAPARIN 30 MG/0.3 ML SYRINGE SUBCUT SCH (20:42)
[2017-05-27] MEDS ORDERED: LEVOFLOXACIN INJ 500 MG in PREMIX 1 EACH IV SCH (21:00)
[2017-05-28] MEDS: PIPERACILLIN/TAZOBACTAM 3,375 MG in SODIUM CHLORIDE 0.9% 100 ML IV SCH ×2 (00:52→12:04)
[2017-05-28 04:37] LABS: Basophils # 0.1 10*3/uL (0.0-0.2); Basophils % 0.6 % (0.0-0.8); Eosinophils # 0.6 10*3/uL (0.0-0.87); Eosinophils % 4.3 % (0.00-10.9); Hematocrit 30.4 VOL% (42.0-52.0); Hemoglobin 10.3 GM/DL (14.0-18.0); Immature Granulocytes % 0.4 %; Immature Granulocytes Absolute 0.06 #; Lymphocytes # 1.6 10*3/uL (1.4-4.0); Lymphocytes % 11.7 % (21.2-54.2); Mean Corpuscular HGB Conc 33.9 GM/DL (32-36); Mean Corpuscular Hemoglobin 33 PG (27-34); Mean Corpuscular Volume 97.7 FL (87-102); Mean Platelet Volume 11.4 FL (9.6-12.0); Monocytes # 1.4 10*3/uL (0.11-0.8); Monocytes % 9.7 % (1.7-12.7); Neutrophils # 10.2 10*3/uL (1.4-7.4); Neutrophils % 73.3 % (38.7-73.9); Platelet Count 179 T/CUMM (130-400); Red Blood Count 3.11 MC/CUMM (3.8-5.5); Red Cell Distribution Width 14.6 % (9.3-17.3)
[2017-05-28 05:00] LABS: Calcium 7.2 MG/DL (8.5-10.1); Osmolality,Calculated 287.1 MOS/KG (273-304); Potassium 5.1 MMOL/L (3.5-5.1)
[2017-05-28] MEDS: INSULIN LISPRO 100 UNIT/ML SUBCUT SCH ×4 (07:52→20:34)
[2017-05-28] MEDS: SEVELAMER CARBONATE 800 MG TABLET PO SCH ×3 (08:52→16:44)
[2017-05-28] MEDS: METOPROLOL SUCCINATE XL 50 MG TABLET PO SCH ×2 (08:53→20:29)
[2017-05-28] MEDS: PANTOPRAZOLE 40 MG TABLET PO SCH (08:53)
[2017-05-28] MEDS: GABAPENTIN 100 MG CAPSULE PO SCH ×3 (08:53→20:28)
[2017-05-28] MEDS: ASPIRIN EC 81 MG TABLET PO SCH (08:53)
[2017-05-28] MEDS: PRAVASTATIN 40 MG TABLET PO SCH (08:53)
--- NOTE | 2017-05-28 09:24 | Nephrology Progress Note ---
Nephrology - PN: Subj Interval history: Patient is without complaints Physical exam general he is in no acute distress Assessment/plan 1. End-stage renal disease 2. Febrile illness-we will continue antibiotics 3. Diabetic foot disease-patient status post debridement of his foot wound, he was found to have an abscess during the debridement procedure. Exam (PN)-Nephrology - Vital Signs Vital signs: Period Temp Pulse Resp BP Sys/Beth Pulse Ox Last 24 Hr 98.2 F-100.0 F 65-80 14-19 96-143/47-78 89-100 - Lab 05/28/17 03:41 05/28/17 03:41 Most recent lab results Calcium 7.2 MG/DL (8.5-10.1) L 05/28/17 03:41 Assessment and Plan (1) Charcot foot due to diabetes mellitus Status: Acute Assessment and plan: Management per Dr. Adame Current Visit: Yes (2) Diabetic ulcer of right foot associated with diabetes mellitus due to underlying condition Status: Acute Current Visit: Yes Qualifiers: Diabetic foot ulcer location: midfoot Non-pressure ulcer stage: with fat layer exposed Qualified Code(s): E08.621 - Diabetes mellitus due to underlying condition with foot ulcer; L97.412 - Non-pressure chronic ulcer of right heel and midfoot with fat layer exposed (3) Fever Status: Acute Assessment and plan: Agree with IV antibiotics Current Visit: Yes (4) Generalized weakness Status: Acute Current Visit: Yes (5) ESRD (end stage renal disease) on dialysis Status: Chronic Assessment and plan: We will continue hemodialysis support on a Monday basis. Current Visit: Yes (6) Secondary hyperparathyroidism Status: Acute Current Visit: No (7) Diabetes Status: Chronic Current Visit: No Qualifiers: Diabetes mellitus type: type 2 Diabetes mellitus complication status: with kidney complications Diabetes mellitus complication detail: with nephropathy (8) Essential hypertension Status: Chronic Current Visit: No
--- NOTE | 2017-05-28 10:12 | Event Note ---
05/28/2017 1000 hrs. Patient generally is doing fairly well but I can tell he is probably been up on the foot to the sitting up in a chair and is a little bit of staining on the bottom of the left foot. Encouraged him not to be up and we try to get him to bring the boot that he has from home to look at and see what adjustments we need to make to it. He will need a Darco postop shoe on the right also they will need to level off at this time. We will get physical therapy involved to count to help him ambulate a little bit better and keep some pressure off this forefoot at this time. Cultures are pending and wound care starting today at this time.
[2017-05-28] MEDS ORDERED: SKIN HEALING OINT (AQUAPHOR) 50 GM TUBE TOP PRN (10:59)
[2017-05-28] MEDS: SODIUM CHLORIDE 0.9% 1,000 ML IV SCH (12:04)
--- NOTE | 2017-05-28 12:55 | Hospitalist Progress Note ---
Assessment and Plan - Time spent with patient Time spent with patient: Less than 30 minutes (1) Congestive heart failure Status: Chronic Assessment and plan: 47-year-old male with history of diabetes, hypertension, Charcot foot, end-stage renal disease on hemodialysis admitted by the hospitalist on 05/25/2017 through the emergency room as a transfer from the [facility] with what was thought to be pneumonia. Patient was having fever and elevated white count but he does not have pneumonia. He does have a left Charcot deformity with multiple ulcers and probable abscess. X-ray of the foot shows possible associated abscess on the plantar aspect with cortical loss suspicious for acute active osteomyelitis and neuropathic joint. Dr. Adame from surgery has been consulted and is taking him to the OR in the morning for debridement. May need eventual assistance from orthopedic surgery for evaluation of his Charcot foot. Patient is on Zosyn and vancomycin. Dr. Yu from nephrology has also been consulted so patient can dialyze from fistula on Monday. Patient's blood sugars are under decent control here by sliding scale insulin. Diabetes educators have been in to discuss diet plan with him. Patient's blood pressures have also been elevated and he is on Toprol 50 mg p.o. daily. Will discuss this with Dr. Swanson to see if she wants to increase this or add further medication. Dr. Swanson will see and examine patient and further recommendations to follow. 05/27/2017 Mr. Higginbotham just returned from surgery by Dr. Adame this morning. He had debridement of diabetic ulcer of the left foot and he found a deep space necrotic and infected subcutaneous tissue and fascia. He also debrided a right foot ulcer as well. Patient is afebrile and his vital signs are stable. His white count is down to 14.8 and his blood sugars are doing well. Blood culture so far are negative, wound cultures are pending. Dr. Swanson will see and examine patient and further recommendations to follow. 05/28/2017 patient seems to be doing well. He is being evaluated for Darco shoes so he can ambulate. He will have physical therapy evaluate him in the morning for assistive device. He did run a mild low-grade fever this morning but this seems to have resolved and his vital signs are stable. His white blood cell count is now down to 14 and his blood sugars look good. His cultures are growing gram-positive cocci but sensitivities are pending. Dr. Swanson will see and examine patient and further recommendations to follow. Current Visit: No Qualifiers: Congestive heart failure type: systolic Congestive heart failure chronicity : acute on chronic Qualified Code(s): I50.23 - Acute on chronic systolic ( congestive) heart failure (2) Diabetes Status: Chronic Current Visit: No Qualifiers: Diabetes mellitus type: type 2 Diabetes mellitus complication status: with kidney complications Diabetes mellitus complication detail: with nephropathy (3) Essential hypertension Status: Chronic Current Visit: No (4) ESRD (end stage renal disease) on dialysis Status: Chronic Current Visit: Yes (5) Diabetic ulcer of left foot Status: Chronic Current Visit: Yes Qualifiers: Diabetes mellitus type: type 2 Non-pressure ulcer stage: unspecified non- pressure ulcer stage (6) Charcot foot due to diabetes mellitus Status: Acute Current Visit: Yes Hospitalist: Subjective Interval history: Mr. Higginbotham feels okay today. His is supposed to bring his shoe so Dr. Adame can evaluate it and see if he needs a new one. Exam - Constitutional Vitals: Period Temp Pulse Resp BP Sys/Beth Pulse Ox Last 24 Hr 97.7 F-100.0 F 66-73 16-20 115-143/58-76 89-98 Exam: 47-year-old male, no acute distress, alert and oriented Chest clear CV regular rate and rhythm Abdomen soft nontender Extremities right dorsal foot wound clean, left dorsal wound with no erythema or purulence noted Results - Labs CBC & BMP: 05/28/17 03:41 05/28/17 03:41 Lab Results: I have reviewed the past 24 hour labs Quality Measures - VTE Contraindication to Pharmacological VTE Prophylaxis: Clinical assessment deems Pt at low risk, no prophalaxis needed Contraindication to Mechanical VTE Prophylaxis: Local Inflammation
[2017-05-28] MEDS: SODIUM HYPOCHLORITE 0.25% IRRIG 473 ML BOTTLE TOP SCH (14:05)
[2017-05-28] MEDS: BACITRACIN OINT 0.9 GM PACK TOP SCH (14:05)
[2017-05-28] MEDS: ENOXAPARIN 30 MG/0.3 ML SYRINGE SUBCUT SCH (20:29)
[2017-05-29] MEDS: PIPERACILLIN/TAZOBACTAM 3,375 MG in SODIUM CHLORIDE 0.9% 100 ML IV SCH ×3 (00:28→23:07)
[2017-05-29] MEDS: ACETAMINOPHEN 325 MG TABLET PO PRN (00:28)
[2017-05-29] MEDS: INSULIN LISPRO 100 UNIT/ML SUBCUT SCH ×4 (07:12→20:28)
[2017-05-29] MEDS: SEVELAMER CARBONATE 800 MG TABLET PO SCH ×3 (08:38→17:04)
[2017-05-29] MEDS: PRAVASTATIN 40 MG TABLET PO SCH (09:30)
[2017-05-29] MEDS: SODIUM HYPOCHLORITE 0.25% IRRIG 473 ML BOTTLE TOP SCH (09:30)
[2017-05-29] MEDS: BACITRACIN OINT 0.9 GM PACK TOP SCH (09:30)
[2017-05-29] MEDS: FLUTICASONE 50 MCG NASAL SPRAY 16 GM BOTTLE BOTH NARES SCH (09:30)
[2017-05-29] MEDS: PANTOPRAZOLE 40 MG TABLET PO SCH (09:30)
[2017-05-29] MEDS: ASPIRIN EC 81 MG TABLET PO SCH (09:30)
[2017-05-29] MEDS: GABAPENTIN 100 MG CAPSULE PO SCH ×3 (09:30→20:38)
[2017-05-29] MEDS: SODIUM CHLORIDE 0.9% 1,000 ML IV SCH (09:31)
[2017-05-29] MEDS: METOPROLOL SUCCINATE XL 50 MG TABLET PO SCH ×2 (09:31→20:38)
--- NOTE | 2017-05-29 10:02 | Event Note ---
05/29/2017. Patient is and dialysis at this time so have not had a chance to look at the foot and see where we stand on at this point.
[2017-05-29] MEDS ORDERED: VANCOMYCIN INJ 750 MG in SODIUM CHLORIDE 0.9% 250 ML IV PRN (10:30)
--- NOTE | 2017-05-29 11:12 | Hospitalist Progress Note ---
Assessment and Plan (1) Charcot foot due to diabetes mellitus Status: Acute Assessment and plan: s/p Excisional debridement of diabetic ulcer left foot of skin deep space necrotic and infected subcutaneous tissue and fascia and excisional debridement of skin subtenons tissue ulcer of the right foot WC grew Staph aureus. Plan Continue with IV antibiotics Follow Surgery's recommendations Continue wound care Current Visit: Yes (2) Diabetes Status: Chronic Assessment and plan: HbA1c- 6.7. Continue current regime. Current Visit: No Qualifiers: Diabetes mellitus type: type 2 Diabetes mellitus complication status: with kidney complications Diabetes mellitus complication detail: with nephropathy (3) Essential hypertension Status: Chronic Assessment and plan: will add Lisinopril 5mg daily, follow response Current Visit: No (4) End stage renal disease Status: Acute Assessment and plan: For HD session today Current Visit: No (5) Congestive heart failure Status: Chronic Assessment and plan: stable Current Visit: No Qualifiers: Congestive heart failure type: systolic Congestive heart failure chronicity : acute on chronic Qualified Code(s): I50.23 - Acute on chronic systolic ( congestive) heart failure Hospitalist: Subjective Interval history: Patient went for vascular studies and had dialysis session afterwards. He has no new complaints. Exam - Constitutional Vitals: Period Temp Pulse Resp BP Sys/Beth Pulse Ox Last 24 Hr 97.7 F-99.3 F 66-78 18-20 129-146/66-79 91-98 General appearance: no acute distress - Head Head exam: Present: normal inspection - Respiratory Respiratory exam: Present: clear to auscultation bilaterally - Cardiovascular Cardiovascular exam: Present: regular rate and rhythm - GI/Abdominal GI/Abdominal exam: Present: normal bowel sounds - Extremities Exam Extremities exam: Present: other (bilateral foot bandaged) Results - Labs CBC & BMP: 05/28/17 03:41 05/28/17 03:41 Lab Results: I have reviewed the past 24 hour labs Quality Measures - VTE Contraindication to Pharmacological VTE Prophylaxis: Clinical assessment deems Pt at low risk, no prophalaxis needed Contraindication to Mechanical VTE Prophylaxis: Local Inflammation
[2017-05-29] MEDS: LISINOPRIL 5 MG TABLET PO SCH (11:38)
--- NOTE | 2017-05-29 13:11 | Nephrology Progress Note ---
Nephrology - PN: Subj Interval history: Patient is without complaints Physical exam general he is in no acute distress Assessment/plan 1. End-stage renal disease 2. Diabetic foot disease continue wound care 3. Fever continue antibiotics 4. Hypertension Exam (PN)-Nephrology - Vital Signs Vital signs: Period Temp Pulse Resp BP Sys/Beth Pulse Ox Last 24 Hr 98.2 F-99.3 F 69-78 18-18 135-146/68-79 91-96 - Lab 05/28/17 03:41 05/28/17 03:41 Most recent lab results Calcium 7.2 MG/DL (8.5-10.1) L 05/28/17 03:41 Assessment and Plan (1) Charcot foot due to diabetes mellitus Status: Acute Assessment and plan: Management per Dr. Adame Current Visit: Yes (2) Diabetic ulcer of right foot associated with diabetes mellitus due to underlying condition Status: Acute Current Visit: Yes Qualifiers: Diabetic foot ulcer location: midfoot Non-pressure ulcer stage: with fat layer exposed Qualified Code(s): E08.621 - Diabetes mellitus due to underlying condition with foot ulcer; L97.412 - Non-pressure chronic ulcer of right heel and midfoot with fat layer exposed (3) Fever Status: Acute Assessment and plan: Agree with IV antibiotics Current Visit: Yes (4) Generalized weakness Status: Acute Current Visit: Yes (5) ESRD (end stage renal disease) on dialysis Status: Chronic Assessment and plan: We will continue hemodialysis support on a Monday basis. Current Visit: Yes (6) Secondary hyperparathyroidism Status: Acute Current Visit: No (7) Diabetes Status: Chronic Current Visit: No Qualifiers: Diabetes mellitus type: type 2 Diabetes mellitus complication status: with kidney complications Diabetes mellitus complication detail: with nephropathy (8) Essential hypertension Status: Chronic Current Visit: No
[2017-05-29] MEDS ORDERED: VANCOMYCIN INJ 750 MG in SODIUM CHLORIDE 0.9% 250 ML IV ONE (14:00)
[2017-05-29] MEDS ORDERED: diphenhydrAMINE CAP 25 MG CAPSULE PO PRN (14:44)
[2017-05-29] MEDS: ENOXAPARIN 30 MG/0.3 ML SYRINGE SUBCUT SCH (20:39)
--- NOTE | 2017-05-30 07:05 | Nephrology Progress Note ---
Nephrology - PN: Subj Interval history: Patient denies shortness of breath. Review of systems GI denies nausea or vomiting Physical exam general the patient is in no acute distress Assessment/plan 1. End-stage renal disease-we will continue hemodialysis 2. Fever-we will continue antibiotics 3. Diabetic foot disease-patient status post incision and drainage of foot wound 4. Hypertension this control 5. Diabetes mellitus this is controlled Exam (PN)-Nephrology - Vital Signs Vital signs: Period Temp Pulse Resp BP Sys/Beth Pulse Ox Last 24 Hr 97.8 F-99.0 F 72-87 14-20 131-185/68-93 95-97 - Lab 05/28/17 03:41 05/28/17 03:41 Most recent lab results Calcium 7.2 MG/DL (8.5-10.1) L 05/28/17 03:41 Assessment and Plan (1) Charcot foot due to diabetes mellitus Status: Acute Assessment and plan: Management per Dr. Adame Current Visit: Yes (2) Diabetic ulcer of right foot associated with diabetes mellitus due to underlying condition Status: Acute Current Visit: Yes Qualifiers: Diabetic foot ulcer location: midfoot Non-pressure ulcer stage: with fat layer exposed Qualified Code(s): E08.621 - Diabetes mellitus due to underlying condition with foot ulcer; L97.412 - Non-pressure chronic ulcer of right heel and midfoot with fat layer exposed (3) Fever Status: Acute Assessment and plan: Agree with IV antibiotics Current Visit: Yes (4) Generalized weakness Status: Acute Current Visit: Yes (5) ESRD (end stage renal disease) on dialysis Status: Chronic Assessment and plan: We will continue hemodialysis support on a Monday basis. Current Visit: Yes (6) Secondary hyperparathyroidism Status: Acute Current Visit: No (7) Diabetes Status: Chronic Current Visit: No Qualifiers: Diabetes mellitus type: type 2 Diabetes mellitus complication status: with kidney complications Diabetes mellitus complication detail: with nephropathy (8) Essential hypertension Status: Chronic Current Visit: No
[2017-05-30] MEDS: INSULIN LISPRO 100 UNIT/ML SUBCUT SCH ×4 (08:32→20:38)
--- NOTE | 2017-05-30 08:32 | General Surgery Progress Note ---
Assessment and Plan (1) Diabetic ulcer of left foot Status: Chronic Assessment and plan: Impression: Diabetic ulceration of the left foot with dark thick eschar doubt there is a underlying abscess but certainly needs debridement Plan: Start wound care and go ahead and do a debridement tomorrow 05/30/2017. Patient is afebrile at this time his wounds continue to look in good shape. The right foot ulcer is healing nicely and we need to stay on top of that because we need to get this from completely healed as soon as possible. The ulcer on the left foot that there is still deep but looks like no necrotic tissue that I am seeing and no unusual drainage present. I think we need to maintain good wound care to try to keep as much weight off this part of the foot as possible. He could benefit from a biological of possibly hyloMatrix. His cultures are back I think we could probably treat him with some Cipro but he is also be a candidate for getting Diovan's as a one-time shot to chronic try to get this process under good control. I think he is wanting to consider going home and we can try to see if we can get [facility] to pepper picker in care for his wounds keep him clean at this time given a chance to fill in. Could need a skin graft was hard to tell at this point. Patient is still receiving dialysis and we get physical therapy going to get him functional at this time. We will get social service to look at him a little bit here to see what we can set up for him as an outpatient get this process under control. Current Visit: Yes Qualifiers: Diabetes mellitus type: type 2 Non-pressure ulcer stage: unspecified non- pressure ulcer stage (2) Charcot foot due to diabetes mellitus Status: Acute Assessment and plan: Impression: Charcot foot deformity secondary to his diabetes of the left foot Plan: Doubt orthopedics can help us at this point will try to get the wounds cleaned up in case we need to do something different but we need to count to find a way to offload this leg as much possible Current Visit: Yes (3) Diabetic ulcer of right foot associated with diabetes mellitus due to underlying condition Status: Acute Assessment and plan: Impression: Diabetic ulcer right foot Plan: Debridement and wound care Current Visit: Yes Qualifiers: Diabetic foot ulcer location: midfoot Non-pressure ulcer stage: with fat layer exposed Qualified Code(s): E08.621 - Diabetes mellitus due to underlying condition with foot ulcer; L97.412 - Non-pressure chronic ulcer of right heel and midfoot with fat layer exposed (4) Chronic renal failure Status: Chronic Assessment and plan: Impression: Chronic renal failure dialysis patient Plan: Medical management Current Visit: No Qualifiers: Chronic kidney disease stage: stage 4 (severe) Qualified Code(s): N18.4 - Chronic kidney disease, stage 4 (severe) (5) Diabetes Status: Chronic Assessment and plan: Impression: Diabetes mellitus insulin-dependent Plan: Maintain good control and medical management Current Visit: No Qualifiers: Diabetes mellitus type: type 2 Diabetes mellitus complication status: with kidney complications Diabetes mellitus complication detail: with nephropathy Subjective Patient reports: Present: no new complaints, tolerating a regular diet, afebrile Exam - Constitutional Vitals: Period Temp Pulse Resp BP Sys/Beth Pulse Ox Last 24 Hr 97.8 F-99.0 F 69-87 14-20 131-185/68-93 94-97 General appearance: mild distress - Head Head exam: Present: normal inspection - ENT ENT exam: Present: normal exam - Neck Neck exam: Present: normal inspection - Respiratory Respiratory exam: Present: clear to auscultation bilaterally, rales - Cardiovascular Cardiovascular exam: Present: RRR - GI/Abdominal GI/Abdominal exam: Present: normal bowel sounds, soft - Extremities Exam Extremities exam: Present: other (Ulcer of the right foot looks clean and dry and may respond quickly this is fairly superficial. The wound and ulcer of the left foot is deep is clean did not see or detect any further necrotic tissue or draining tissue at this time. She has continued deformity with chronic swelling of the foot is noted.) - Back Exam Back exam: Present: normal inspection - Neurological Exam Neurological exam: Present: alert, oriented X3, CN II-XII intact - Skin Skin exam: Present: normal color Results - Labs CBC & BMP: 05/28/17 03:41 05/28/17 03:41 Lab Results: I have reviewed the past 24 hour labs Quality Measures - VTE Contraindication to Pharmacological VTE Prophylaxis: Clinical assessment deems Pt at low risk, no prophalaxis needed Contraindication to Mechanical VTE Prophylaxis: Local Inflammation
[2017-05-30] MEDS: GABAPENTIN 100 MG CAPSULE PO SCH ×3 (08:33→20:39)
[2017-05-30] MEDS: ASPIRIN EC 81 MG TABLET PO SCH (08:33)
[2017-05-30] MEDS: SODIUM HYPOCHLORITE 0.25% IRRIG 473 ML BOTTLE TOP SCH (08:33)
[2017-05-30] MEDS: LISINOPRIL 5 MG TABLET PO SCH (08:33)
[2017-05-30] MEDS: SEVELAMER CARBONATE 800 MG TABLET PO SCH ×3 (08:33→16:52)
[2017-05-30] MEDS: METOPROLOL SUCCINATE XL 50 MG TABLET PO SCH ×2 (08:33→20:40)
[2017-05-30] MEDS: PANTOPRAZOLE 40 MG TABLET PO SCH (08:33)
[2017-05-30] MEDS: PRAVASTATIN 40 MG TABLET PO SCH (08:33)
[2017-05-30] MEDS: BACITRACIN OINT 0.9 GM PACK TOP SCH (08:33)
[2017-05-30] MEDS: FLUTICASONE 50 MCG NASAL SPRAY 16 GM BOTTLE BOTH NARES SCH (08:33)
[2017-05-30] MEDS ORDERED: LEVOFLOXACIN 500 MG TABLET PO ONE (09:00)
[2017-05-30] MEDS: SODIUM CHLORIDE 0.9% 1,000 ML IV SCH (10:34)
--- NOTE | 2017-05-30 13:22 | Hospitalist Progress Note ---
Assessment and Plan (1) Charcot foot due to diabetes mellitus Status: Acute Assessment and plan: s/p Excisional debridement of diabetic ulcer left foot of skin deep space necrotic and infected subcutaneous tissue and fascia and excisional debridement of skin subtenons tissue ulcer of the right foot WC grew Staph aureus. Plan Continue with IV antibiotics. patient will go home on the one time dose of IV dalvance in am Follow Surgery's recommendations Continue wound care Current Visit: Yes (2) Diabetes Status: Chronic Assessment and plan: HbA1c- 6.7. Continue current regime. Current Visit: No Qualifiers: Diabetes mellitus type: type 2 Diabetes mellitus complication status: with kidney complications Diabetes mellitus complication detail: with nephropathy (3) Essential hypertension Status: Chronic Assessment and plan: stable Current Visit: No (4) End stage renal disease Status: Acute Assessment and plan: For HD session today Current Visit: No (5) Congestive heart failure Status: Chronic Assessment and plan: stable Current Visit: No Qualifiers: Congestive heart failure type: systolic Congestive heart failure chronicity : acute on chronic Qualified Code(s): I50.23 - Acute on chronic systolic ( congestive) heart failure Hospitalist: Subjective Interval history: Patient seen this am, he has no new complaint. He is being arranged to get Dalvance as outpatient. Exam - Constitutional Vitals: Period Temp Pulse Resp BP Sys/Beth Pulse Ox Last 24 Hr 97.8 F-99.5 F 68-87 14-20 131-185/68-93 94-97 General appearance: no acute distress - Head Head exam: Present: normal inspection - Respiratory Respiratory exam: Present: clear to auscultation bilaterally - Cardiovascular Cardiovascular exam: Present: regular rate and rhythm - GI/Abdominal GI/Abdominal exam: Present: normal bowel sounds - Extremities Exam Extremities exam: Present: other (bilateral leg bandaged) - Neurological Exam Neurological exam: Present: alert, oriented X3 Results - Labs CBC & BMP: 05/28/17 03:41 05/28/17 03:41 Lab Results: I have reviewed the past 24 hour labs Quality Measures - VTE Contraindication to Pharmacological VTE Prophylaxis: Clinical assessment deems Pt at low risk, no prophalaxis needed Contraindication to Mechanical VTE Prophylaxis: Local Inflammation
[2017-05-30] MEDS: ENOXAPARIN 30 MG/0.3 ML SYRINGE SUBCUT SCH (20:40)
[2017-05-31 07:00] VITALS: BP 148/77
--- NOTE | 2017-05-31 07:09 | Discharge Summary ---
Hospital Course - Hospital Course Hospital Course: Mr. Higginbotham is a 47 year old male who has a history of ESRD on HD, DM who presented with cough and fever.He was treated at dialysis, a day prior to presentation but fever worsened to 102F.Upon arrival,a wound on the dorsum of his left foot as well as a callused ulceration plantar surface which he states was unchanged, CXR showed no acute changes.He was started on broad spectrum antibiotics with IV Vanc, Zosyn .Surgery was consulted.X-ray of the foot shows possible associated abscess on the plantar aspect with cortical loss suspicious for acute active osteomyelitis and neuropathic joint.He had debridement of diabetic ulcer of the left foot and he found a deep space necrotic and infected subcutaneous tissue and fascia. He also debrided a right foot ulcer as well.Nephrology was consulted and he had sessions of dialysis.His wound grew staph aureus and Zosyn was subsequently dcd and po Levaquin was added. His diabetes was tightly controlled and he had some teachings.Wound was also being dressed. He has been scheduled to have an outpatient IV Dalvance, correctional case manager is also working on a knee walker. His vitals are stable, he will go home after his session of dialysis today. He will follow up with PCP in 1week and Suregery as scheduled. Diagnosis - Discharge Diagnosis (1) Charcot foot due to diabetes mellitus Status: Acute (2) Diabetes Status: Chronic (3) Essential hypertension Status: Chronic (4) End stage renal disease Status: Acute (5) Congestive heart failure Status: Chronic Discharge Plan - Discharge Data Disposition: Disch To Home/Self Care Condition at Discharge: Stable Discharge Diet: diabetic diet Activity: resume usual activities as tolerated - Discharge Medications New Acetaminophen Tab [Tylenol Tab] 325 mg PO Q4H PRN tablet PRN Reason: fever, headache/body aches Dalbavancin [Dalvance] 1,125 mg IV ONCE #1 vial Fluticasone 50 Mcg Nasal [place] [Flonase Nasal [place]] 2 spray BOTH NARES DAILY spray HYDROcodone/ACETAMIN 5-325 [[place] 5-325] 1 tablet PO Q4H PRN #20 tablet PRN Reason: Pain Mild (1-3) Levofloxacin Tab [Levaquin Tab] 250 mg PO Q48H #20 tablet Lisinopril [Prinivil] 5 mg PO DAILY #30 tablet Skin Healing Oint (Aquaphor) [Aquaphor] 1 applic TOP PRN PRN applic PRN Reason: Dry Skin Sodium Hypochlorite 0.25% Irr [Dakins 1/2 Strength 0.25% Soln] 1 applic TOP DAILY applic Gabapentin Cap/Tab [Neurontin Cap/Tab] 100 mg PO TID #20 capsule Pantoprazole Tab [Protonix Tab] 40 mg PO DAILY #30 tablet Insulin Glargine [Lantus] 10 unit SUBCUT BEDTIME #10 ml Insulin Lispro [HumaLOG] See Protocol SUBCUT ACHS unit Continue Metoprolol Succinate Xl [Toprol Xl] 50 mg PO DAILY #30 tablet Pravastatin [Pravachol] 40 mg PO DAILY Aspirin [Ecotrin] 81 mg PO QAM Sevelamer Carbonate Tab [Renvela Tab] 800 mg PO TID W/MEALS - Follow Up or Referral - Forms/Instructions Additional Discharge Instructions: Follow with PCP in 1week. Follow with suregry as scheduled Exam - Constitutional Vitals: Period Temp Pulse Resp BP Sys/Beth Pulse Ox Last 24 Hr 98.1 F-99.5 F 68-78 18-20 123-162/65-89 94-97 General appearance: no acute distress - Head Head exam: Present: normal inspection - Respiratory Respiratory exam: Present: clear to auscultation bilaterally - Cardiovascular Cardiovascular exam: Present: regular rate and rhythm - GI/Abdominal GI/Abdominal exam: Present: normal bowel sounds - Extremities Exam Extremities exam: Present: other (both legs bandaged) - Neurological Exam Neurological exam: Present: alert, oriented X3 Discharge Results Procedures and tests throughout hospitalization: Pending Orders 05/26/17 15:50 Wound Culture Routine Labs on day of discharge: Labs from last 24 hours 05/31/17 05/30/17 05/30/17 04:54 19:09 10:50 POC Glucose 131 H 157 H Random Vancomycin 26.1 DS: Provider Date of admission: 05/25/17 17:00 Primary care physician: Nuria Pearl MD Attending physician on admission: Rosalind Keith MD Consults: 05/25/17 19:17 Consult to Pharmacy [CONS] Routine Reason for Pharmacy Consult: Adjust Meds Renal Funct Consult to Physician [CONS] Routine Comment: ESRD Consulting Provider: Jhony Yu Consulting Provider Notified: Yes When should Consulting Provider be notified: Now Person Notified: Erendira called Date Notified: 05/26/17 Time Notified: 08:15 05/25/17 19:38 Consult to Pastoral Services [CONS] Routine Comment: Pastoral Screen: Request Executive Coordinator Visit Pastoral Screen Source of Request: Patient 05/26/17 08:56 Consult to Physician [CONS] Routine Comment: Consulting Provider: Devin Adame Consulting Provider Notified: Yes When should Consulting Provider be notified: Now Consult to Specialist Group: Surgery When should Consulting Provider be notified: Now Person Notified: Dr Adame called Date Notified: 05/26/17 Time Notified: 09:42 Consult Notification Comment: 05/26/17 11:03 Consult to Anesthesiology [CONS] Routine Consulting Provider: Reason for Anesthesiology: Pre-op Clearance 05/26/17 11:16 Consult to Diabetes Center, Educator [CONS] Routine Reason for Core Cutter: Diabetes Education 05/26/17 11:18 Consult to Pharmacy [CONS] Routine Reason for Pharmacy Consult: Dose/Manage Vancomycin 05/26/17 14:16 Consult to Dietitian [CONS] Routine Reason for Dietitian: Other Consult Comment: no concentrated sweets 05/27/17 09:10 Consult to Wound Care - [place] [CONS] Routine Reason for Wound Care: Wound Care Management Consult Comment: Wound care to the feet 05/27/17 09:14 Consult to Case Mgmt/Social Srvs [CONS] Routine Reason for Case Mgmt/Social Srvs: Discharge Planning Consult Comment: Home health or [facility] 05/28/17 10:13 Consult to Physical Therapy [CONS] Routine Reason for Physical Therapy: Evaluate and Treat Ambulation Other Start Therapy: Tomorrow Consult Comment: To ambulate with walker but consider a knee walker for the left Discharging clinician: Prudence Swanson MD
[2017-05-31] MEDS: INSULIN LISPRO 100 UNIT/ML SUBCUT SCH ×2 (08:20→11:18)
[2017-05-31] MEDS: SEVELAMER CARBONATE 800 MG TABLET PO SCH ×2 (08:21→13:34)
--- NOTE | 2017-05-31 08:35 | General Surgery Progress Note ---
Assessment and Plan - Time spent with patient Time spent with patient: Less than 30 minutes (1) Diabetic ulcer of left foot Status: Chronic Assessment and plan: Impression: Diabetic ulceration of the left foot with dark thick eschar doubt there is a underlying abscess but certainly needs debridement Plan: Start wound care and go ahead and do a debridement tomorrow 05/30/2017. Patient is afebrile at this time his wounds continue to look in good shape. The right foot ulcer is healing nicely and we need to stay on top of that because we need to get this from completely healed as soon as possible. The ulcer on the left foot that there is still deep but looks like no necrotic tissue that I am seeing and no unusual drainage present. I think we need to maintain good wound care to try to keep as much weight off this part of the foot as possible. He could benefit from a biological of possibly hyloMatrix. His cultures are back I think we could probably treat him with some Cipro but he is also be a candidate for getting Diovan's as a one-time shot to chronic try to get this process under good control. I think he is wanting to consider going home and we can try to see if we can get [facility] to pepper picker in care for his wounds keep him clean at this time given a chance to fill in. Could need a skin graft was hard to tell at this point. Patient is still receiving dialysis and we get physical therapy going to get him functional at this time. We will get social service to look at him a little bit here to see what we can set up for him as an outpatient get this process under control. 05/31/2017 Wounds on the right foot are progressing fairly nicely and should heal up without too much problems if we can keep pressure off of him. The ulcer of the left foot is improving got a good bit of depth to it and a HyloMatrix might be beneficial in hip and this feeling and although may require wound VAC to keep it in place. Have discussed situation with [facility] and they should be aware that he is coming and they will evaluate the wounds as to what can he can be done for the wound care. I will follow him up again about 3 weeks to see how he is progressing as see if it is going to require skin graft at some point. Current Visit: Yes Qualifiers: Diabetes mellitus type: type 2 Non-pressure ulcer stage: unspecified non- pressure ulcer stage (2) Charcot foot due to diabetes mellitus Status: Acute Assessment and plan: Impression: Charcot foot deformity secondary to his diabetes of the left foot Plan: Doubt orthopedics can help us at this point will try to get the wounds cleaned up in case we need to do something different but we need to count to find a way to offload this leg as much possible Current Visit: Yes (3) Diabetic ulcer of right foot associated with diabetes mellitus due to underlying condition Status: Acute Assessment and plan: Impression: Diabetic ulcer right foot Plan: Debridement and wound care Current Visit: Yes Qualifiers: Diabetic foot ulcer location: midfoot Non-pressure ulcer stage: with fat layer exposed Qualified Code(s): E08.621 - Diabetes mellitus due to underlying condition with foot ulcer; L97.412 - Non-pressure chronic ulcer of right heel and midfoot with fat layer exposed (4) Chronic renal failure Status: Chronic Assessment and plan: Impression: Chronic renal failure dialysis patient Plan: Medical management Current Visit: No Qualifiers: Chronic kidney disease stage: stage 4 (severe) Qualified Code(s): N18.4 - Chronic kidney disease, stage 4 (severe) (5) Diabetes Status: Chronic Assessment and plan: Impression: Diabetes mellitus insulin-dependent Plan: Maintain good control and medical management Current Visit: No Qualifiers: Diabetes mellitus type: type 2 Diabetes mellitus complication status: with kidney complications Diabetes mellitus complication detail: with nephropathy Subjective Patient reports: Present: feels better, pain is less, tolerating a regular diet , afebrile Exam - Constitutional Vitals: Period Temp Pulse Resp BP Sys/Beth Pulse Ox Last 24 Hr 98.0 F-99.5 F 68-78 18-20 123-162/65-89 95-97 General appearance: no acute distress - Head Head exam: Present: normal inspection - ENT ENT exam: Present: normal exam Mouth exam: Present: normal external inspection - Neck Neck exam: Present: normal inspection - Respiratory Respiratory exam: Present: clear to auscultation bilaterally - Cardiovascular Cardiovascular exam: Present: RRR - GI/Abdominal GI/Abdominal exam: Present: hypoactive bowel sounds, soft - Extremities Exam Extremities exam: Present: other (Wounds are clean at this point time no sign of any gross infection.) - Back Exam Back exam: Present: normal inspection - Neurological Exam Neurological exam: Present: alert, oriented X3, CN II-XII intact - Skin Skin exam: Present: normal color, warm, dry Results - Labs CBC & BMP: 05/28/17 03:41 05/28/17 03:41 Lab Results: I have reviewed the past 24 hour labs Quality Measures - VTE Contraindication to Pharmacological VTE Prophylaxis: Clinical assessment deems Pt at low risk, no prophalaxis needed Contraindication to Mechanical VTE Prophylaxis: Local Inflammation Specialty Discharge - Follow Up or Referrals Follow up with: Devin Adame MD [Physician] - 1 Month
[2017-05-31] MEDS: FLUTICASONE 50 MCG NASAL SPRAY 16 GM BOTTLE BOTH NARES SCH (09:00)
--- NOTE | 2017-05-31 09:18 | Dialysis Note ---
Dialysis Note - Dialysis Note Patient seen on dialysis tolerated the procedure. Blood pressure 148/77. Cardiovascular regular rate. Lungs clear to auscultation.
[2017-05-31] MEDS ORDERED: VANCOMYCIN INJ 500 MG in SODIUM CHLORIDE 0.9% 100 ML IV ONE (12:00)
[2017-05-31] MEDS: ASPIRIN EC 81 MG TABLET PO SCH (13:31)
[2017-05-31] MEDS: GABAPENTIN 100 MG CAPSULE PO SCH (13:32)
[2017-05-31] MEDS: PRAVASTATIN 40 MG TABLET PO SCH (13:32)
[2017-05-31] MEDS: LISINOPRIL 5 MG TABLET PO SCH (13:32)
[2017-05-31] MEDS: PANTOPRAZOLE 40 MG TABLET PO SCH (13:33)
[2017-05-31] MEDS: METOPROLOL SUCCINATE XL 50 MG TABLET PO SCH (13:33)
[2017-05-31] MEDS: SODIUM HYPOCHLORITE 0.25% IRRIG 473 ML BOTTLE TOP SCH (13:43)
[2017-05-31] MEDS: BACITRACIN OINT 0.9 GM PACK TOP SCH (13:43)
[2017-06-01] MEDS ORDERED: LEVOFLOXACIN 250 MG TABLET PO SCH (09:00)
== END 2017-05-31 14:50 | disposition home or self-care (01) | DRG 623 ==
LOC: EDUNIT# → EDBD → N.ED 15:52 → SUATTDRO 17:00 → N.EDINP 17:00 → N.3E 18:12
PROVIDERS: ADMIT Family Medicine; ATTEND Internal Medicine

== ENCOUNTER 2018-09-13 15:16 | Inpatient (IN) ==
[2018-09-13 16:03] LABS: Basophils # 0.1 10*3/uL (0.0-0.2); Basophils % 0.6 % (0.0-0.8); Eosinophils # 0.1 10*3/uL (0.0-0.87); Eosinophils % 0.8 % (0.00-10.9); Hematocrit 26.4 VOL% (42.0-52.0); Hemoglobin 8.4 GM/DL (14.0-18.0); Immature Granulocytes % 0.6 %; Immature Granulocytes Absolute 0.07 #; Lymphocytes # 1.8 10*3/uL (1.4-4.0); Lymphocytes % 14.4 % (21.2-54.2); Mean Corpuscular HGB Conc 31.8 GM/DL (32-36); Mean Corpuscular Hemoglobin 31 PG (27-34); Mean Corpuscular Volume 98.5 FL (87-102); Mean Platelet Volume 10.2 FL (9.6-12.0); Monocytes # 1.1 10*3/uL (0.11-0.8); Monocytes % 9.1 % (1.7-12.7); Neutrophils # 9.2 10*3/uL (1.4-7.4); Neutrophils % 74.5 % (38.7-73.9); Platelet Count 442 T/CUMM (130-400); Red Blood Count 2.68 MC/CUMM (3.8-5.5); Red Cell Distribution Width 14.7 % (9.3-17.3); White Blood Count 12.3 T/CUMM (4-12)
[2018-09-13 16:28] LABS: Albumin 1.8 G/DL (3.4-5.0); Bilirubin,Total 0.6 MG/DL (0.2-1.0); Calcium 8.4 MG/DL (8.5-10.1); Osmolality,Calculated 268.8 MOS/KG (273-304); Potassium 3.3 MMOL/L (3.5-5.1); Total Protein 10.9 G/DL (6.4-8.3)
[2018-09-13] MEDS ORDERED: ACETAMINOPHEN 500 MG TABLET PO STA (16:53)
[2018-09-13] MEDS ORDERED: ACETAMINOPHEN 500 MG TABLET ONE (16:56)
[2018-09-13] MEDS ORDERED: CEFTAROLINE 600 MG in SODIUM CHLORIDE 0.9% 100 ML IV STA (18:29)
[2018-09-13] MEDS ORDERED: IBUPROFEN 600 MG TABLET PO STA (18:34)
[2018-09-13] MEDS ORDERED: IBUPROFEN 600 MG TABLET ONE (18:36)
[2018-09-13] MEDS ORDERED: ACETAMINOPHEN 325 MG TABLET PO PRN (19:48)
[2018-09-13] MEDS ORDERED: DEXTROSE 50% 25 GM/50 ML VIAL IV PRN (19:48)
[2018-09-13] MEDS ORDERED: ONDANSETRON 4 MG/2 ML VIAL IV PRN (19:48)
[2018-09-13] MEDS ORDERED: GLUCAGON 1 MG VIAL IM PRN (19:48)
[2018-09-13] MEDS ORDERED: MORPHINE 4 MG/1 ML VIAL IV PRN (19:48)
[2018-09-13] MEDS: ENOXAPARIN 30 MG/0.3 ML SYRINGE SUBCUT SCH (21:27)
[2018-09-13] MEDS: INSULIN REGULAR 100 UNIT/ML SUBCUT SCH (21:33)
[2018-09-14 05:31] LABS: Basophils # 0.1 10*3/uL (0.0-0.2); Basophils % 0.6 % (0.0-0.8); Eosinophils # 0.4 10*3/uL (0.0-0.87); Eosinophils % 3.3 % (0.00-10.9); Hematocrit 25.2 VOL% (42.0-52.0); Hemoglobin 7.9 GM/DL (14.0-18.0); Immature Granulocytes % 0.7 %; Immature Granulocytes Absolute 0.09 #; Lymphocytes # 2.7 10*3/uL (1.4-4.0); Lymphocytes % 20.2 % (21.2-54.2); Mean Corpuscular HGB Conc 31.3 GM/DL (32-36); Mean Corpuscular Hemoglobin 31 PG (27-34); Mean Corpuscular Volume 99.2 FL (87-102); Mean Platelet Volume 10.1 FL (9.6-12.0); Monocytes # 1.4 10*3/uL (0.11-0.8); Monocytes % 10.7 % (1.7-12.7); Neutrophils # 8.7 10*3/uL (1.4-7.4); Neutrophils % 64.5 % (38.7-73.9); Platelet Count 407 T/CUMM (130-400); Red Blood Count 2.54 MC/CUMM (3.8-5.5); Red Cell Distribution Width 14.7 % (9.3-17.3); White Blood Count 13.5 T/CUMM (4-12)
[2018-09-14 05:55] LABS: Calcium 8.2 MG/DL (8.5-10.1); Osmolality,Calculated 268.7 MOS/KG (273-304); Potassium 3.5 MMOL/L (3.5-5.1)
[2018-09-14] MEDS ORDERED: CEFTAROLINE 300 MG in SODIUM CHLORIDE 0.9% 100 ML IV SCH (06:30)
[2018-09-14] MEDS ORDERED: VANCOMYCIN INJ 750 MG in SODIUM CHLORIDE 0.9% 250 ML IV PRN (08:33)
[2018-09-14] MEDS: INSULIN REGULAR 100 UNIT/ML SUBCUT SCH ×4 (09:05→21:20)
[2018-09-14] MEDS: amLODIPine 10 MG TABLET PO SCH (09:18)
[2018-09-14] MEDS: CALCIUM ACETATE 667 MG CAPSULE PO SCH (09:18)
[2018-09-14] MEDS: VANCOMYCIN INJ 2,000 MG in SODIUM CHLORIDE 0.9% 500 ML IV ONE ×2 (10:15→13:20)
[2018-09-14] MEDS ORDERED: VANCOMYCIN 1,000 MG VIAL ONE (10:32)
[2018-09-14] MEDS ORDERED: HYDROmorphone 2 MG/1 ML VIAL ONE (12:09)
[2018-09-14] MEDS ORDERED: ONDANSETRON 4 MG/2 ML VIAL ONE (12:09)
[2018-09-14] MEDS: HYDROmorphone 2 MG/1 ML VIAL IV PRN ×2 (12:11→12:25)
[2018-09-14] MEDS ORDERED: ONDANSETRON 4 MG/2 ML VIAL IV PRN (12:19)
[2018-09-14] MEDS ORDERED: PHENYLEPHRINE DRIP 20 MG/250 ML PREMIX IV ONE (12:27)
[2018-09-14] MEDS ORDERED: PROPOFOL 200 MG/20 ML VIAL IV ONE (12:27)
[2018-09-14] MEDS ORDERED: fentaNYL 100 MCG/2 ML VIAL ONE (12:27)
[2018-09-14] MEDS ORDERED: SEVOFLURANE 1 UNIT/15 MINUTE INH ONE (12:27)
[2018-09-14] MEDS ORDERED: MIDAZOLAM 2 MG/2 ML VIAL ONE (12:28)
[2018-09-14] MEDS ORDERED: SODIUM CHLORIDE 0.9% 500 ML IV ONE (12:28)
[2018-09-14 13:41] LABS: Basophils # 0.1 10*3/uL (0.0-0.2); Basophils % 0.7 % (0.0-0.8); Eosinophils # 0.3 10*3/uL (0.0-0.87); Eosinophils % 2.7 % (0.00-10.9); Hemoglobin 7.1 GM/DL (14.0-18.0); Immature Granulocytes % 0.5 %; Immature Granulocytes Absolute 0.06 #; Lymphocytes # 3.2 10*3/uL (1.4-4.0); Lymphocytes % 27.2 % (21.2-54.2); Mean Corpuscular HGB Conc 30.9 GM/DL (32-36); Mean Corpuscular Hemoglobin 31 PG (27-34); Mean Platelet Volume 9.8 FL (9.6-12.0); Monocytes # 1.1 10*3/uL (0.11-0.8); Monocytes % 9.4 % (1.7-12.7); Neutrophils % 59.5 % (38.7-73.9); Platelet Count 384 T/CUMM (130-400); Red Cell Distribution Width 14.7 % (9.3-17.3); White Blood Count 11.7 T/CUMM (4-12)
[2018-09-14 14:01] LABS: ABG Base Excess 7.9 MMOL/L (-2.5-2.5); ABG HCO3 31.7 MMOL/L (20-26); ABG Oxygen Saturation 98.6 % (95-100); ABG PCO2 56.6 MM HG (35-48); ABG PH 7.388 (7.35-7.45); ABG TCO2 32.2 MMOL/L (23-27)
[2018-09-14 14:10] LABS: Albumin 1.4 G/DL (3.4-5.0); Bilirubin,Total 0.5 MG/DL (0.2-1.0); Calcium 7.8 MG/DL (8.5-10.1); Osmolality,Calculated 274.4 MOS/KG (273-304); Potassium 3.5 MMOL/L (3.5-5.1); Total Protein 8.9 G/DL (6.4-8.3)
[2018-09-14] MEDS: PIPERACILLIN/TAZOBACTAM 3,375 MG in SODIUM CHLORIDE 0.9% 100 ML IV SCH ×2 (14:22→15:02)
[2018-09-14] MEDS ORDERED: SODIUM CHLORIDE 0.9% 1,000 ML IV PRN (15:06)
[2018-09-14] MEDS ORDERED: NALOXONE 0.4 MG/ML VIAL IV PRN (17:36)
[2018-09-14] MEDS: MORPHINE PCA 30 MG/30 ML SYRINGE IV SCH (18:49)
[2018-09-14] MEDS: SODIUM CHLORIDE 0.9% 500 ML IV SCH (18:49)
[2018-09-14] MEDS: ENOXAPARIN 30 MG/0.3 ML SYRINGE SUBCUT SCH (21:20)
[2018-09-15] MEDS: PIPERACILLIN/TAZOBACTAM 3,375 MG in SODIUM CHLORIDE 0.9% 100 ML IV SCH ×2 (02:56→16:34)
[2018-09-15 03:14] LABS: Basophils # 0.1 10*3/uL (0.0-0.2); Basophils % 0.8 % (0.0-0.8); Eosinophils # 0.5 10*3/uL (0.0-0.87); Eosinophils % 4.5 % (0.00-10.9); Hematocrit 22.7 VOL% (42.0-52.0); Hemoglobin 7.1 GM/DL (14.0-18.0); Immature Granulocytes % 0.5 %; Immature Granulocytes Absolute 0.05 #; Lymphocytes # 1.5 10*3/uL (1.4-4.0); Lymphocytes % 13.6 % (21.2-54.2); Mean Corpuscular HGB Conc 31.3 GM/DL (32-36); Mean Corpuscular Hemoglobin 31 PG (27-34); Mean Corpuscular Volume 100.4 FL (87-102); Mean Platelet Volume 10.3 FL (9.6-12.0); Monocytes # 0.9 10*3/uL (0.11-0.8); Monocytes % 8.3 % (1.7-12.7); Neutrophils # 7.7 10*3/uL (1.4-7.4); Neutrophils % 72.3 % (38.7-73.9); Platelet Count 410 T/CUMM (130-400); Red Blood Count 2.26 MC/CUMM (3.8-5.5); Red Cell Distribution Width 14.6 % (9.3-17.3); White Blood Count 10.7 T/CUMM (4-12)
[2018-09-15 03:20] LABS: PT Patient Result 11.2 SECS
[2018-09-15] MEDS: MORPHINE PCA 30 MG/30 ML SYRINGE IV SCH ×2 (03:58→16:45)
[2018-09-15] MEDS: INSULIN REGULAR 100 UNIT/ML SUBCUT SCH ×4 (07:21→21:05)
[2018-09-15] MEDS: amLODIPine 10 MG TABLET PO SCH (08:12)
[2018-09-15] MEDS: CALCIUM ACETATE 667 MG CAPSULE PO SCH (08:12)
[2018-09-15] MEDS ORDERED: ATROPINE 1 MG/10 ML SYRINGE ONE (08:41)
[2018-09-15] MEDS ORDERED: ATROPINE 1 MG/10 ML SYRINGE IV PRN (09:23)
[2018-09-15] MEDS ORDERED: VALPROIC ACID INJ 750 MG in SODIUM CHLORIDE 0.9% 100 ML IV ONE (14:00)
[2018-09-15] MEDS ORDERED: VANCOMYCIN INJ 750 MG in SODIUM CHLORIDE 0.9% 250 ML IV ONE (18:00)
[2018-09-15] MEDS ORDERED: VANCOMYCIN INJ 1,000 MG in SODIUM CHLORIDE 0.9% 250 ML IV ONE (20:00)
[2018-09-15] MEDS ORDERED: DIVALPROEX 250 MG TABLET PO SCH (21:00)
[2018-09-15] MEDS: DIVALPROEX 500 MG TABLET PO SCH (21:05)
[2018-09-15] MEDS: ENOXAPARIN 30 MG/0.3 ML SYRINGE SUBCUT SCH (21:05)
[2018-09-15] MEDS: SODIUM CHLORIDE 0.9% 500 ML IV SCH (21:05)
[2018-09-16] MEDS: PIPERACILLIN/TAZOBACTAM 3,375 MG in SODIUM CHLORIDE 0.9% 100 ML IV SCH ×2 (04:23→14:56)
[2018-09-16] MEDS: INSULIN REGULAR 100 UNIT/ML SUBCUT SCH ×4 (08:31→20:40)
[2018-09-16] MEDS: DIVALPROEX 500 MG TABLET PO SCH ×2 (08:32→20:38)
[2018-09-16] MEDS: CALCIUM ACETATE 667 MG CAPSULE PO SCH (08:32)
[2018-09-16] MEDS: amLODIPine 10 MG TABLET PO SCH (08:32)
[2018-09-16] MEDS ORDERED: MORPHINE 4 MG/1 ML VIAL IV PRN (09:38)
[2018-09-16] MEDS: ENOXAPARIN 30 MG/0.3 ML SYRINGE SUBCUT SCH (20:38)
[2018-09-17] MEDS: PIPERACILLIN/TAZOBACTAM 3,375 MG in SODIUM CHLORIDE 0.9% 100 ML IV SCH ×2 (03:59→15:01)
[2018-09-17 04:03] LABS: Basophils # 0.1 10*3/uL (0.0-0.2); Basophils % 0.8 % (0.0-0.8); Eosinophils # 0.7 10*3/uL (0.0-0.87); Eosinophils % 5.6 % (0.00-10.9); Hemoglobin 7.8 GM/DL (14.0-18.0); Immature Granulocytes % 0.5 %; Immature Granulocytes Absolute 0.06 #; Lymphocytes # 1.7 10*3/uL (1.4-4.0); Lymphocytes % 15.1 % (21.2-54.2); Mean Corpuscular HGB Conc 31.2 GM/DL (32-36); Mean Corpuscular Hemoglobin 31 PG (27-34); Mean Corpuscular Volume 97.7 FL (87-102); Mean Platelet Volume 10.3 FL (9.6-12.0); Monocytes # 1.2 10*3/uL (0.11-0.8); Monocytes % 10.4 % (1.7-12.7); Neutrophils # 7.8 10*3/uL (1.4-7.4); Neutrophils % 67.6 % (38.7-73.9); Platelet Count 395 T/CUMM (130-400); Red Blood Count 2.56 MC/CUMM (3.8-5.5); Red Cell Distribution Width 17.6 % (9.3-17.3); White Blood Count 11.5 T/CUMM (4-12)
[2018-09-17 04:28] LABS: Calcium 7.4 MG/DL (8.5-10.1); Osmolality,Calculated 269.8 MOS/KG (273-304); Potassium 3.9 MMOL/L (3.5-5.1)
[2018-09-17] MEDS: amLODIPine 10 MG TABLET PO SCH (08:51)
[2018-09-17] MEDS: CALCIUM ACETATE 667 MG CAPSULE PO SCH (08:52)
[2018-09-17] MEDS: DIVALPROEX 500 MG TABLET PO SCH ×2 (08:52→20:44)
[2018-09-17] MEDS: INSULIN REGULAR 100 UNIT/ML SUBCUT SCH ×4 (08:53→20:46)
[2018-09-17] MEDS: CHLORHEXIDINE 4% SOLN 118 ML BOTTLE TOP SCH (10:34)
[2018-09-17] MEDS: ENOXAPARIN 30 MG/0.3 ML SYRINGE SUBCUT SCH (20:44)
[2018-09-18] MEDS: PIPERACILLIN/TAZOBACTAM 3,375 MG in SODIUM CHLORIDE 0.9% 100 ML IV SCH (01:59)
[2018-09-18] MEDS: DIVALPROEX 500 MG TABLET PO SCH (08:12)
[2018-09-18] MEDS: CALCIUM ACETATE 667 MG CAPSULE PO SCH (08:13)
[2018-09-18] MEDS: amLODIPine 10 MG TABLET PO SCH (08:13)
[2018-09-18] MEDS: CHLORHEXIDINE 4% SOLN 118 ML BOTTLE TOP SCH (08:14)
[2018-09-18] MEDS: INSULIN REGULAR 100 UNIT/ML SUBCUT SCH ×3 (09:12→17:48)
[2018-09-18 12:06] VITALS: BP 136/78
[2018-09-18] MEDS ORDERED: VANCOMYCIN INJ 750 MG in SODIUM CHLORIDE 0.9% 250 ML IV ONE (21:00)
== END 2018-09-18 17:30 | DRG 617 ==
LOC: N.ED 15:16 → SUATTDRO 19:48 → N.EDINP 19:48 → N.5E 21:17 → N.CC 09-14 13:17 → N.TELEN 09-16 14:12
PROVIDERS: ADMIT Internal Medicine Cardiovascular Disease; ATTEND Hospitalist

== ENCOUNTER 2020-06-03 18:14 | Inpatient (IN) ==
[2020-06-03] MEDS ORDERED: AZITHROMYCIN 250 MG TABLET PO STA (18:49)
[2020-06-03] MEDS ORDERED: PIPERACILLIN/TAZOBACTAM 3,375 MG in SODIUM CHLORIDE 0.9% 100 ML IV STA (18:49)
[2020-06-03 19:56] LABS: Basophils % 0.4 % (0.0-0.8); Hematocrit 28.8 VOL% (42.0-52.0); Hemoglobin 9.8 GM/DL (14.0-18.0); Immature Granulocytes % 0.2 %; Immature Granulocytes Absolute 0.01 #; Lymphocytes % 18.3 % (21.2-54.2); Mean Corpuscular Volume 98.6 FL (87-102); Mean Platelet Volume 10.8 FL (9.6-12.0); Neutrophils % 76.1 % (38.7-73.9); Platelet Count 106 T/CUMM (130-400); Red Blood Count 2.92 MC/CUMM (3.8-5.5); Red Cell Distribution Width 12.7 % (9.3-17.3); White Blood Count 5.4 T/CUMM (4-12)
[2020-06-03 20:27] LABS: Albumin 2.9 G/DL (3.4-5.0); Bilirubin,Total 0.5 MG/DL (0.2-1.0); Osmolality,Calculated 274.7 MOS/KG (273-304)
[2020-06-03] MEDS ORDERED: DEXAMETHASONE 10 MG/1 ML VIAL IV STA (20:30)
[2020-06-03] MEDS ORDERED: GLUCAGON 1 MG VIAL IM PRN (20:55)
[2020-06-03] MEDS ORDERED: NICOTINE 21 MG/24 HR PATCH TRANSDERM PRN (20:55)
[2020-06-03] MEDS ORDERED: MORPHINE 4 MG/1 ML VIAL IV PRN (20:55)
[2020-06-03] MEDS ORDERED: DEXTROSE 50% 25 GM/50 ML VIAL IV PRN (20:55)
[2020-06-03] MEDS ORDERED: guaiFENesin/DM ER 600-30 MG TABLET PO PRN (20:55)
[2020-06-03] MEDS ORDERED: diphenhydrAMINE CAP 25 MG CAPSULE PO PRN (20:55)
[2020-06-03] MEDS ORDERED: POTASSIUM CHLORIDE 20 MEQ TABLET PO STA (22:45)
[2020-06-04] MEDS ORDERED: methylPREDNISolone SOD SUC 40 MG/1 ML VIAL IV SCH (08:00)
[2020-06-04] MEDS ORDERED: DEXAMETHASONE 10 MG/1 ML VIAL IV SCH (09:00)
[2020-06-04] MEDS: AZITHROMYCIN 250 MG TABLET PO SCH (09:56)
[2020-06-04] MEDS: PIPERACILLIN/TAZOBACTAM 3,375 MG in SODIUM CHLORIDE 0.9% 100 ML IV SCH ×2 (09:57→20:36)
[2020-06-04] MEDS ORDERED: SODIUM CHLORIDE 0.9% 1,000 ML IV PRN (11:22)
[2020-06-04] MEDS: ENOXAPARIN 30 MG/0.3 ML SYRINGE SUBCUT SCH (14:50)
[2020-06-04] MEDS ORDERED: AZITHROMYCIN INJ 500 MG in SODIUM CHLORIDE 0.9% 250 ML IV SCH (22:00)
[2020-06-05 06:27] LABS: Ferritin 9823.3 ng/ml (26-388)
[2020-06-05] MEDS: PIPERACILLIN/TAZOBACTAM 3,375 MG in SODIUM CHLORIDE 0.9% 100 ML IV SCH ×2 (09:15→20:07)
[2020-06-05] MEDS: AZITHROMYCIN 250 MG TABLET PO SCH (09:16)
[2020-06-05] MEDS: DEXAMETHASONE 4 MG TABLET PO SCH (09:16)
[2020-06-05 11:05] LABS: Hematocrit 33.2 VOL% (42.0-52.0); Hemoglobin 11.6 GM/DL (14.0-18.0); Immature Granulocytes % 0.3 %; Immature Granulocytes Absolute 0.02 #; Lymphocytes # 0.8 10*3/uL (1.4-4.0); Lymphocytes % 11.1 % (21.2-54.2); Mean Corpuscular HGB Conc 34.9 GM/DL (32-36); Mean Platelet Volume 11.4 FL (9.6-12.0); Monocytes % 3.4 % (1.7-12.7); Neutrophils % 85.2 % (38.7-73.9); Platelet Count 106 T/CUMM (130-400); Red Blood Count 3.46 MC/CUMM (3.8-5.5); Red Cell Distribution Width 12.5 % (9.3-17.3)
[2020-06-05 11:06] LABS: Calcium 6.9 MG/DL (8.5-10.1); Osmolality,Calculated 292.7 MOS/KG (273-304)
[2020-06-05] MEDS: ENOXAPARIN 30 MG/0.3 ML SYRINGE SUBCUT SCH (14:53)
[2020-06-05] MEDS: amLODIPine 10 MG TABLET PO SCH (15:04)
[2020-06-05] MEDS: CALCIUM ACETATE 667 MG CAPSULE PO SCH (17:09)
[2020-06-05] MEDS: GABAPENTIN 100 MG CAPSULE PO SCH (20:08)
[2020-06-05] MEDS: carvediloL 3.125 MG TABLET PO SCH (20:08)
[2020-06-06] MEDS: ONDANSETRON 4 MG/2 ML VIAL IV PRN ×2 (02:03→06:29)
[2020-06-06] MEDS: ACETAMINOPHEN 325 MG TABLET PO PRN ×2 (04:34→09:53)
[2020-06-06 05:53] LABS: Basophils % 0.1 % (0.0-0.8); Hematocrit 30.5 VOL% (42.0-52.0); Hemoglobin 10.6 GM/DL (14.0-18.0); Immature Granulocytes % 0.4 %; Immature Granulocytes Absolute 0.04 #; Lymphocytes # 0.5 10*3/uL (1.4-4.0); Lymphocytes % 4.9 % (21.2-54.2); Mean Corpuscular HGB Conc 34.8 GM/DL (32-36); Mean Corpuscular Volume 95.9 FL (87-102); Monocytes % 2.5 % (1.7-12.7); NRBC # 0.02 10*3/uL; Neutrophils % 92.1 % (38.7-73.9); Red Blood Count 3.18 MC/CUMM (3.8-5.5); Red Cell Distribution Width 12.3 % (9.3-17.3); White Blood Count 10.6 T/CUMM (4-12)
[2020-06-06 06:00] LABS: Platelet Count 99 T/CUMM (130-400)
[2020-06-06 06:07] LABS: Osmolality,Calculated 288.4 MOS/KG (273-304)
[2020-06-06 06:19] LABS: Band Neutrophils 1 % (0-10); Lymphocytes 9 % (20-55); Segmented Neutrophils 89 % (50-85); Total Cells Counted 100
[2020-06-06 06:20] LABS: Hypochromasia 1+; Microcytosis Slight; Ovalocytes Slight; Platelet Estimate Decreased
[2020-06-06 06:23] LABS: Ferritin 8400.8 ng/ml (26-388)
[2020-06-06 08:30] LABS: ABG Base Excess -1.8 MMOL/L (-2.5-2.5); ABG HCO3 22.8 MMOL/L (20-26); ABG Oxygen Saturation 90.9 % (95-100); ABG PCO2 38.2 MM HG (35-48); ABG PH 7.386 (7.35-7.45); ABG PO2 64.4 MM HG (80-95); ABG TCO2 20.7 MMOL/L (23-27)
[2020-06-06] MEDS: CALCIUM ACETATE 667 MG CAPSULE PO SCH ×3 (08:46→16:15)
[2020-06-06] MEDS: AZITHROMYCIN 250 MG TABLET PO SCH (08:47)
[2020-06-06] MEDS: PIPERACILLIN/TAZOBACTAM 3,375 MG in SODIUM CHLORIDE 0.9% 100 ML IV SCH ×2 (08:47→20:15)
[2020-06-06] MEDS: PANTOPRAZOLE 40 MG TABLET PO SCH (08:47)
[2020-06-06] MEDS: DEXAMETHASONE 4 MG TABLET PO SCH (08:47)
[2020-06-06] MEDS: calcitrioL 0.25 MCG CAPSULE PO SCH (08:50)
[2020-06-06] MEDS: amLODIPine 10 MG TABLET PO SCH (09:01)
[2020-06-06] MEDS: carvediloL 3.125 MG TABLET PO SCH ×2 (09:02→20:15)
[2020-06-06] MEDS: ENOXAPARIN 30 MG/0.3 ML SYRINGE SUBCUT SCH (15:33)
[2020-06-06] MEDS: GABAPENTIN 100 MG CAPSULE PO SCH (20:16)
[2020-06-07 03:43] LABS: Basophils % 0.1 % (0.0-0.8); Hematocrit 30.3 VOL% (42.0-52.0); Hemoglobin 10.4 GM/DL (14.0-18.0); Immature Granulocytes % 0.5 %; Immature Granulocytes Absolute 0.06 #; Lymphocytes # 0.5 10*3/uL (1.4-4.0); Lymphocytes % 4.4 % (21.2-54.2); Mean Corpuscular HGB Conc 34.3 GM/DL (32-36); Mean Corpuscular Volume 97.1 FL (87-102); Mean Platelet Volume 12.2 FL (9.6-12.0); Monocytes % 2.2 % (1.7-12.7); Neutrophils % 92.8 % (38.7-73.9); Platelet Count 88 T/CUMM (130-400); Red Blood Count 3.12 MC/CUMM (3.8-5.5); Red Cell Distribution Width 12.6 % (9.3-17.3); White Blood Count 12.1 T/CUMM (4-12)
[2020-06-07 04:01] LABS: Calcium 7.6 MG/DL (8.5-10.1); Osmolality,Calculated 292.1 MOS/KG (273-304)
[2020-06-07 04:06] LABS: Band Neutrophils 1 % (0-10); Lymphocytes 6 % (20-55); Platelet Estimate Decreased; Segmented Neutrophils 92 % (50-85); Total Cells Counted 100
[2020-06-07 04:18] LABS: ABG Base Excess -1.3 MMOL/L (-2.5-2.5); ABG HCO3 23.3 MMOL/L (20-26); ABG Oxygen Saturation 95.8 % (95-100); ABG PCO2 46.4 MM HG (35-48); ABG PH 7.336 (7.35-7.45); ABG PO2 87.4 MM HG (80-95); ABG TCO2 22.6 MMOL/L (23-27); Allen Test Positive; Pt O2 Delivery Device BIPAP
[2020-06-07 04:53] LABS: Ferritin 9533.1 ng/ml (26-388)
[2020-06-07] MEDS ORDERED: ETOMIDATE 20 MG/10 ML VIAL IV ONE ×3 (06:37→07:15)
[2020-06-07] MEDS ORDERED: SUCCINYLCHOLINE 200 MG/10 ML VIAL ONE (06:37)
[2020-06-07] MEDS ORDERED: SODIUM CHLORIDE 0.9% 500 ML IV ONE (07:12)
[2020-06-07] MEDS ORDERED: SUCCINYLCHOLINE 200 MG/10 ML VIAL IV ONE ×2 (07:14→07:31)
[2020-06-07] MEDS ORDERED: MIDAZOLAM 10 MG/2 ML VIAL ONE (07:25)
[2020-06-07] MEDS ORDERED: MIDAZOLAM 2 MG/2 ML VIAL IV ONE (07:28)
[2020-06-07] MEDS ORDERED: ROCURONIUM 100 MG/10 ML VIAL IV ONE ×2 (07:55→07:56)
[2020-06-07] MEDS: ROCURONIUM 500 MG in SODIUM CHLORIDE 0.9% 500 ML IV PRN ×2 (08:27→22:35)
[2020-06-07] MEDS: MIDAZOLAM 100 MG in SODIUM CHLORIDE 0.9% 80 ML IV PRN (08:27)
[2020-06-07] MEDS: CALCIUM ACETATE 667 MG CAPSULE PO SCH (08:47)
[2020-06-07 08:59] LABS: ABG Base Excess -2.5 MMOL/L (-2.5-2.5); ABG HCO3 22.3 MMOL/L (20-26); ABG Oxygen Saturation 99.3 % (95-100); ABG PCO2 46.9 MM HG (35-48); ABG PH 7.313 (7.35-7.45); Pt O2 Delivery Device Ventilator
[2020-06-07] MEDS: amLODIPine 10 MG TABLET PO SCH (09:03)
[2020-06-07] MEDS: carvediloL 3.125 MG TABLET PO SCH (09:03)
[2020-06-07] MEDS ORDERED: AZITHROMYCIN 250 MG TABLET PER TUBE SCH (09:04)
[2020-06-07] MEDS: DEXAMETHASONE 4 MG TABLET PO SCH (09:17)
[2020-06-07] MEDS: AZITHROMYCIN 250 MG TABLET PO SCH (09:18)
[2020-06-07] MEDS: SODIUM CHLORIDE 0.9% 1,000 ML IV SCH (09:47)
[2020-06-07] MEDS: HEPARIN DRIP 25,000 UNITS/500 ML PREMIX IV SCH (09:48)
[2020-06-07] MEDS: PIPERACILLIN/TAZOBACTAM 3,375 MG in SODIUM CHLORIDE 0.9% 100 ML IV SCH ×2 (09:48→20:33)
[2020-06-07] MEDS ORDERED: NOREPINEPHRINE 16 MG in SODIUM CHLORIDE 0.9% 234 ML IV PRN (10:00)
[2020-06-07] MEDS: calcitrioL 0.25 MCG CAPSULE PO SCH (10:01)
[2020-06-07] MEDS: PANTOPRAZOLE 40 MG TABLET PO SCH (11:05)
[2020-06-07] MEDS ORDERED: INSULIN LISPRO 100 UNIT/ML ONE (16:59)
[2020-06-07] MEDS: INSULIN LISPRO 100 UNIT/ML SUBCUT SCH (17:41)
[2020-06-07] MEDS: GABAPENTIN 50 MG/ML 30 ML/BOTTLE PER TUBE SCH (20:33)
[2020-06-08] MEDS: INSULIN LISPRO 100 UNIT/ML SUBCUT SCH ×5 (00:52→17:25)
[2020-06-08 04:19] LABS: Eosinophils # 0.1 10*3/uL (0.0-0.87); Hematocrit 25.6 VOL% (42.0-52.0); Hemoglobin 8.7 GM/DL (14.0-18.0); Immature Granulocytes % 0.7 %; Immature Granulocytes Absolute 0.07 #; Lymphocytes # 0.6 10*3/uL (1.4-4.0); Lymphocytes % 6.4 % (21.2-54.2); Mean Corpuscular Volume 99.6 FL (87-102); Monocytes % 1.9 % (1.7-12.7); NRBC # 0.02 10*3/uL; Red Blood Count 2.57 MC/CUMM (3.8-5.5); Red Cell Distribution Width 12.6 % (9.3-17.3); White Blood Count 9.8 T/CUMM (4-12)
[2020-06-08 04:22] LABS: Platelet Count 93 T/CUMM (130-400)
[2020-06-08 04:34] LABS: Calcium 7.4 MG/DL (8.5-10.1)
[2020-06-08 04:48] LABS: Hypochromasia 2+; Microcytosis Slight; Platelet Estimate Decreased
[2020-06-08 05:01] LABS: Ferritin 7085.1 ng/ml (26-388)
[2020-06-08 05:08] LABS: ABG Base Excess -2.7 MMOL/L (-2.5-2.5); ABG Oxygen Saturation 88.1 % (95-100); ABG PCO2 46.4 MM HG (35-48); ABG PH 7.314 (7.35-7.45); ABG TCO2 21.9 MMOL/L (23-27)
[2020-06-08] MEDS: HEPARIN DRIP 25,000 UNITS/500 ML PREMIX IV SCH (06:09)
[2020-06-08] MEDS: PIPERACILLIN/TAZOBACTAM 3,375 MG in SODIUM CHLORIDE 0.9% 100 ML IV SCH ×2 (08:00→20:36)
[2020-06-08] MEDS: PANTOPRAZOLE 40 MG VIAL IV SCH (08:02)
[2020-06-08] MEDS: calcitrioL 0.25 MCG CAPSULE PO SCH (08:03)
[2020-06-08] MEDS: DEXAMETHASONE 4 MG TABLET PER TUBE SCH (08:04)
[2020-06-08] MEDS: SODIUM CHLORIDE 0.9% 1,000 ML IV SCH (10:43)
[2020-06-08] MEDS: MIDAZOLAM 100 MG in SODIUM CHLORIDE 0.9% 80 ML IV PRN (18:09)
[2020-06-08] MEDS: GABAPENTIN 50 MG/ML 30 ML/BOTTLE PER TUBE SCH (20:37)
[2020-06-09] MEDS: INSULIN LISPRO 100 UNIT/ML SUBCUT SCH ×4 (01:13→17:23)
[2020-06-09] MEDS: HEPARIN DRIP 25,000 UNITS/500 ML PREMIX IV SCH ×2 (01:59→10:29)
[2020-06-09 05:04] LABS: ABG Base Excess 0.3 MMOL/L (-2.5-2.5); ABG HCO3 24.7 MMOL/L (20-26); ABG Oxygen Saturation 97.3 % (95-100); ABG PCO2 44.5 MM HG (35-48); ABG PH 7.371 (7.35-7.45); ABG TCO2 23.3 MMOL/L (23-27); Allen Test Positive; Pt O2 Delivery Device Ventilator
[2020-06-09 05:14] LABS: Hematocrit 28.1 VOL% (42.0-52.0); Hemoglobin 9.4 GM/DL (14.0-18.0); Immature Granulocytes % 0.7 %; Immature Granulocytes Absolute 0.07 #; Lymphocytes # 0.5 10*3/uL (1.4-4.0); Mean Corpuscular HGB Conc 33.5 GM/DL (32-36); Mean Corpuscular Volume 97.6 FL (87-102); Monocytes % 2.8 % (1.7-12.7); Neutrophils % 91.5 % (38.7-73.9); Platelet Count 115 T/CUMM (130-400); Red Blood Count 2.88 MC/CUMM (3.8-5.5); White Blood Count 9.7 T/CUMM (4-12)
[2020-06-09 05:29] LABS: Calcium 8.2 MG/DL (8.5-10.1); Osmolality,Calculated 293.1 MOS/KG (273-304)
[2020-06-09 05:36] LABS: Band Neutrophils 1 % (0-10); Lymphocytes 5 % (20-55); Nucleated Red Blood Cells 1 (0-5); Platelet Estimate Decreased; Segmented Neutrophils 89 % (50-85); Total Cells Counted 100
[2020-06-09 05:37] LABS: Hypochromasia 1+; Microcytosis 1+
[2020-06-09] MEDS: PIPERACILLIN/TAZOBACTAM 3,375 MG in SODIUM CHLORIDE 0.9% 100 ML IV SCH ×2 (07:55→20:25)
[2020-06-09] MEDS: DEXAMETHASONE 4 MG TABLET PER TUBE SCH (08:18)
[2020-06-09] MEDS: PANTOPRAZOLE 40 MG VIAL IV SCH (08:18)
[2020-06-09] MEDS: calcitrioL 0.25 MCG CAPSULE PO SCH (08:19)
[2020-06-09] MEDS: SODIUM CHLORIDE 0.9% 1,000 ML IV SCH (10:30)
[2020-06-09] MEDS: INSULIN GLARGINE 100 UNIT/ML SUBCUT SCH (20:25)
[2020-06-09] MEDS: GABAPENTIN 50 MG/ML 30 ML/BOTTLE PER TUBE SCH (20:25)
[2020-06-09] MEDS: MIDAZOLAM 100 MG in SODIUM CHLORIDE 0.9% 80 ML IV PRN (22:30)
[2020-06-10] MEDS: INSULIN LISPRO 100 UNIT/ML SUBCUT SCH ×4 (00:38→17:52)
[2020-06-10 04:19] LABS: ABG Base Excess -2.4 MMOL/L (-2.5-2.5); ABG HCO3 22.4 MMOL/L (20-26); ABG PCO2 40.9 MM HG (35-48); ABG PH 7.357 (7.35-7.45); ABG TCO2 20.7 MMOL/L (23-27); Allen Test Positive; Pt O2 Delivery Device Ventilator
[2020-06-10 04:36] LABS: Basophils % 0.1 % (0.0-0.8); Hemoglobin 9.3 GM/DL (14.0-18.0); Immature Granulocytes % 1.5 %; Immature Granulocytes Absolute 0.13 #; Lymphocytes # 0.6 10*3/uL (1.4-4.0); Lymphocytes % 7.2 % (21.2-54.2); Mean Corpuscular HGB Conc 33.2 GM/DL (32-36); Mean Corpuscular Volume 98.9 FL (87-102); Mean Platelet Volume 12.9 FL (9.6-12.0); Monocytes % 5.3 % (1.7-12.7); NRBC # 0.02 10*3/uL; Neutrophils % 85.9 % (38.7-73.9); Platelet Count 147 T/CUMM (130-400); Red Blood Count 2.83 MC/CUMM (3.8-5.5); Red Cell Distribution Width 12.9 % (9.3-17.3); White Blood Count 8.8 T/CUMM (4-12)
[2020-06-10 04:48] LABS: Calcium 8.2 MG/DL (8.5-10.1); Osmolality,Calculated 307.8 MOS/KG (273-304)
[2020-06-10 04:59] LABS: Hypochromasia 1+; Microcytosis Slight; Ovalocytes Slight; Platelet Estimate Adequate
[2020-06-10] MEDS: HEPARIN DRIP 25,000 UNITS/500 ML PREMIX IV SCH ×2 (06:01→12:13)
[2020-06-10] MEDS: PIPERACILLIN/TAZOBACTAM 3,375 MG in SODIUM CHLORIDE 0.9% 100 ML IV SCH ×2 (07:56→20:54)
[2020-06-10] MEDS: DEXAMETHASONE 4 MG TABLET PER TUBE SCH (08:00)
[2020-06-10] MEDS: PANTOPRAZOLE 40 MG VIAL IV SCH (08:00)
[2020-06-10] MEDS: SODIUM CHLORIDE 0.9% 1,000 ML IV SCH (12:14)
[2020-06-10] MEDS: calcitrioL 0.25 MCG CAPSULE PO SCH (17:52)
[2020-06-10 19:57] LABS: Hepatitis B Surface Ab Result Positive
[2020-06-10] MEDS: INSULIN GLARGINE 100 UNIT/ML SUBCUT SCH (20:54)
[2020-06-10] MEDS: GABAPENTIN 50 MG/ML 30 ML/BOTTLE PER TUBE SCH (20:55)
[2020-06-11] MEDS: INSULIN LISPRO 100 UNIT/ML SUBCUT SCH ×4 (01:45→18:15)
[2020-06-11] MEDS: HEPARIN DRIP 25,000 UNITS/500 ML PREMIX IV SCH ×3 (02:28→23:27)
[2020-06-11 03:21] LABS: Allen Test Positive; Pt O2 Delivery Device Ventilator
[2020-06-11 03:23] LABS: ABG Base Excess -0.8 MMOL/L (-2.5-2.5); ABG HCO3 24.3 MMOL/L (20-26); ABG Oxygen Saturation 96.2 % (95-100); ABG PO2 93.5 MM HG (80-95); ABG TCO2 25.6 MMOL/L (23-27)
[2020-06-11] MEDS: MIDAZOLAM 100 MG in SODIUM CHLORIDE 0.9% 80 ML IV PRN (05:01)
[2020-06-11 05:02] LABS: Basophils % 0.2 % (0.0-0.8); Eosinophils # 0.1 10*3/uL (0.0-0.87); Eosinophils % 0.7 % (0.00-10.9); Hematocrit 27.8 VOL% (42.0-52.0); Hemoglobin 9.3 GM/DL (14.0-18.0); Immature Granulocytes % 2.7 %; Immature Granulocytes Absolute 0.27 #; Lymphocytes # 0.9 10*3/uL (1.4-4.0); Lymphocytes % 8.4 % (21.2-54.2); Mean Corpuscular HGB Conc 33.5 GM/DL (32-36); Mean Corpuscular Volume 99.3 FL (87-102); Mean Platelet Volume 12.8 FL (9.6-12.0); Monocytes % 5.4 % (1.7-12.7); NRBC # 0.02 10*3/uL; Neutrophils % 82.6 % (38.7-73.9); Platelet Count 179 T/CUMM (130-400); Red Cell Distribution Width 12.8 % (9.3-17.3); White Blood Count 10.2 T/CUMM (4-12)
[2020-06-11 05:18] LABS: Lymphocytes 7 % (20-55); Platelet Estimate Adequate; Segmented Neutrophils 86 % (50-85); Total Cells Counted 100
[2020-06-11 05:19] LABS: Hypochromasia 1+; Microcytosis 1+; Ovalocytes Slight
[2020-06-11 05:23] LABS: Calcium 8.4 MG/DL (8.5-10.1); Osmolality,Calculated 293.2 MOS/KG (273-304)
[2020-06-11 05:54] LABS: Bilirubin,Total 0.5 MG/DL (0.2-1.0); Calcium 8.2 MG/DL (8.5-10.1); Osmolality,Calculated 298.1 MOS/KG (273-304); Total Protein 7.2 G/DL (6.4-8.3)
[2020-06-11] MEDS: PIPERACILLIN/TAZOBACTAM 3,375 MG in SODIUM CHLORIDE 0.9% 100 ML IV SCH (08:14)
[2020-06-11] MEDS: DEXAMETHASONE 4 MG TABLET PER TUBE SCH (08:15)
[2020-06-11] MEDS: calcitrioL 0.25 MCG CAPSULE PO SCH (08:15)
[2020-06-11] MEDS: PANTOPRAZOLE 40 MG VIAL IV SCH (08:15)
[2020-06-11] MEDS: SODIUM CHLORIDE 0.9% 1,000 ML IV SCH (09:54)
[2020-06-11] MEDS: GABAPENTIN 50 MG/ML 30 ML/BOTTLE PER TUBE SCH (20:30)
[2020-06-11] MEDS: INSULIN GLARGINE 100 UNIT/ML SUBCUT SCH (20:30)
[2020-06-12] MEDS: PIPERACILLIN/TAZOBACTAM 3,375 MG in SODIUM CHLORIDE 0.9% 100 ML IV SCH ×2 (00:50→12:43)
[2020-06-12] MEDS: INSULIN LISPRO 100 UNIT/ML SUBCUT SCH ×4 (00:54→17:39)
[2020-06-12 04:14] LABS: ABG Base Excess -3.2 MMOL/L (-2.5-2.5); ABG HCO3 21.7 MMOL/L (20-26); ABG Oxygen Saturation 98.7 % (95-100); ABG PCO2 42.7 MM HG (35-48); ABG PH 7.331 (7.35-7.45); ABG TCO2 20.9 MMOL/L (23-27); Allen Test Positive; Pt O2 Delivery Device Ventilator
[2020-06-12 04:46] LABS: Basophils % 0.1 % (0.0-0.8); Eosinophils # 0.2 10*3/uL (0.0-0.87); Eosinophils % 1.7 % (0.00-10.9); Hematocrit 26.7 VOL% (42.0-52.0); Hemoglobin 8.7 GM/DL (14.0-18.0); Immature Granulocytes % 4.7 %; Immature Granulocytes Absolute 0.41 #; Lymphocytes # 0.9 10*3/uL (1.4-4.0); Lymphocytes % 10.2 % (21.2-54.2); Mean Corpuscular HGB Conc 32.6 GM/DL (32-36); Mean Platelet Volume 12.8 FL (9.6-12.0); Monocytes % 6.8 % (1.7-12.7); Neutrophils % 76.5 % (38.7-73.9); Platelet Count 164 T/CUMM (130-400); Red Blood Count 2.67 MC/CUMM (3.8-5.5); White Blood Count 8.7 T/CUMM (4-12)
[2020-06-12 05:10] LABS: Hypochromasia 2+; Lymphocytes 10 % (20-55); Microcytosis 1+; Osmolality,Calculated 303.2 MOS/KG (273-304); Ovalocytes Slight; Platelet Estimate Adequate; Segmented Neutrophils 86 % (50-85); Total Cells Counted 100
[2020-06-12] MEDS: DEXAMETHASONE 4 MG TABLET PER TUBE SCH (08:44)
[2020-06-12] MEDS: PANTOPRAZOLE 40 MG VIAL IV SCH (08:44)
[2020-06-12] MEDS: calcitrioL 0.25 MCG CAPSULE PO SCH (08:44)
[2020-06-12] MEDS: amLODIPine 10 MG TABLET PO SCH (08:45)
[2020-06-12] MEDS: SODIUM CHLORIDE 0.9% 1,000 ML IV SCH (10:57)
[2020-06-12] MEDS: MIDAZOLAM 100 MG in SODIUM CHLORIDE 0.9% 80 ML IV PRN (15:25)
[2020-06-12] MEDS: GABAPENTIN 50 MG/ML 30 ML/BOTTLE PER TUBE SCH (20:33)
[2020-06-12] MEDS: INSULIN GLARGINE 100 UNIT/ML SUBCUT SCH (20:33)
[2020-06-12] MEDS: HEPARIN DRIP 25,000 UNITS/500 ML PREMIX IV SCH (21:15)
[2020-06-13] MEDS: PIPERACILLIN/TAZOBACTAM 3,375 MG in SODIUM CHLORIDE 0.9% 100 ML IV SCH ×2 (00:42→13:06)
[2020-06-13] MEDS: INSULIN LISPRO 100 UNIT/ML SUBCUT SCH ×5 (01:00→23:31)
[2020-06-13] MEDS: HEPARIN DRIP 25,000 UNITS/500 ML PREMIX IV SCH ×2 (01:32→22:17)
[2020-06-13 04:47] LABS: ABG Base Excess -0.6 MMOL/L (-2.5-2.5); ABG HCO3 23.7 MMOL/L (20-26); ABG Oxygen Saturation 96.4 % (95-100); ABG PCO2 37.7 MM HG (35-48); ABG PH 7.417 (7.35-7.45); ABG PO2 91.8 MM HG (80-95); ABG TCO2 24.9 MMOL/L (23-27); Allen Test Positive; Pt O2 Delivery Device Ventilator
[2020-06-13 05:57] LABS: Basophils % 0.1 % (0.0-0.8); Eosinophils # 0.1 10*3/uL (0.0-0.87); Eosinophils % 1.8 % (0.00-10.9); Hematocrit 26.6 VOL% (42.0-52.0); Hemoglobin 8.7 GM/DL (14.0-18.0); Immature Granulocytes % 5.9 %; Immature Granulocytes Absolute 0.47 #; Lymphocytes # 0.8 10*3/uL (1.4-4.0); Lymphocytes % 9.7 % (21.2-54.2); Mean Corpuscular HGB Conc 32.7 GM/DL (32-36); Mean Corpuscular Volume 99.6 FL (87-102); Mean Platelet Volume 12.7 FL (9.6-12.0); Monocytes % 7.4 % (1.7-12.7); NRBC # 0.02 10*3/uL; Neutrophils % 75.1 % (38.7-73.9); Platelet Count 162 T/CUMM (130-400); Red Blood Count 2.67 MC/CUMM (3.8-5.5)
[2020-06-13 06:29] LABS: Calcium 7.9 MG/DL (8.5-10.1); Osmolality,Calculated 295.1 MOS/KG (273-304)
[2020-06-13] MEDS: DEXAMETHASONE 4 MG TABLET PER TUBE SCH (08:45)
[2020-06-13] MEDS: PANTOPRAZOLE 40 MG VIAL IV SCH (08:45)
[2020-06-13] MEDS: calcitrioL 0.25 MCG CAPSULE PO SCH (08:46)
[2020-06-13] MEDS: amLODIPine 10 MG TABLET PO SCH (08:46)
[2020-06-13 10:53] LABS: Lymphocytes 13 % (20-55); Metamyelocytes 1 %; Myelocytes 3 %; Ovalocytes Few; Polychromasia Slight; Schistocytes Few; Segmented Neutrophils 79 % (50-85); Total Cells Counted 100
[2020-06-13 10:54] LABS: Burr Cells Few; Microcytosis Slight; Platelet Estimate Adequate
[2020-06-13] MEDS: SODIUM CHLORIDE 0.9% 1,000 ML IV SCH (12:26)
[2020-06-13] MEDS: INSULIN GLARGINE 100 UNIT/ML SUBCUT SCH (20:20)
[2020-06-13] MEDS: GABAPENTIN 50 MG/ML 30 ML/BOTTLE PER TUBE SCH (20:20)
[2020-06-13] MEDS: MIDAZOLAM 100 MG in SODIUM CHLORIDE 0.9% 80 ML IV PRN (22:15)
[2020-06-14] MEDS: PIPERACILLIN/TAZOBACTAM 3,375 MG in SODIUM CHLORIDE 0.9% 100 ML IV SCH ×3 (00:18→23:56)
[2020-06-14 03:53] LABS: Basophils % 0.2 % (0.0-0.8); Eosinophils # 0.1 10*3/uL (0.0-0.87); Eosinophils % 2.1 % (0.00-10.9); Hematocrit 25.7 VOL% (42.0-52.0); Hemoglobin 8.4 GM/DL (14.0-18.0); Immature Granulocytes % 6.8 %; Lymphocytes # 0.6 10*3/uL (1.4-4.0); Lymphocytes % 9.4 % (21.2-54.2); Mean Corpuscular HGB Conc 32.7 GM/DL (32-36); Mean Corpuscular Volume 99.6 FL (87-102); Monocytes % 8.6 % (1.7-12.7); Neutrophils % 72.9 % (38.7-73.9); Platelet Count 176 T/CUMM (130-400); Red Blood Count 2.58 MC/CUMM (3.8-5.5); Red Cell Distribution Width 13.1 % (9.3-17.3); White Blood Count 5.8 T/CUMM (4-12)
[2020-06-14 05:02] LABS: ABG Base Excess -3.3 MMOL/L (-2.5-2.5); ABG HCO3 21.2 MMOL/L (20-26); ABG Oxygen Saturation 98.2 % (95-100); ABG PCO2 35.9 MM HG (35-48); ABG PH 7.389 (7.35-7.45); ABG PO2 128.2 MM HG (80-95); ABG TCO2 22.3 MMOL/L (23-27); Allen Test Positive; Pt O2 Delivery Device Ventilator
[2020-06-14 05:04] LABS: Calcium 7.4 MG/DL (8.5-10.1); Osmolality,Calculated 308.1 MOS/KG (273-304)
[2020-06-14] MEDS: INSULIN LISPRO 100 UNIT/ML SUBCUT SCH ×3 (05:30→18:11)
[2020-06-14] MEDS: DEXAMETHASONE 4 MG TABLET PER TUBE SCH (08:38)
[2020-06-14] MEDS: calcitrioL 0.25 MCG CAPSULE PO SCH (08:39)
[2020-06-14] MEDS: PANTOPRAZOLE 40 MG VIAL IV SCH (08:39)
[2020-06-14] MEDS: amLODIPine 10 MG TABLET PO SCH (08:39)
[2020-06-14 09:38] LABS: Band Neutrophils 2 % (0-10); Eosinophils 1 % (0-10); Lymphocytes 11 % (20-55); Metamyelocytes 2 %; Myelocytes 1 %; Polychromasia Slight; Segmented Neutrophils 78 % (50-85); Total Cells Counted 100
[2020-06-14 09:39] LABS: Platelet Estimate Adequate
[2020-06-14] MEDS: SODIUM CHLORIDE 0.9% 1,000 ML IV SCH (12:09)
[2020-06-14] MEDS: INSULIN GLARGINE 100 UNIT/ML SUBCUT SCH (20:13)
[2020-06-14] MEDS: GABAPENTIN 50 MG/ML 30 ML/BOTTLE PER TUBE SCH (20:13)
[2020-06-15] MEDS: INSULIN LISPRO 100 UNIT/ML SUBCUT SCH ×4 (00:26→18:09)
[2020-06-15] MEDS: HEPARIN DRIP 25,000 UNITS/500 ML PREMIX IV SCH ×3 (01:08→15:40)
[2020-06-15] MEDS: MIDAZOLAM 100 MG in SODIUM CHLORIDE 0.9% 80 ML IV PRN ×2 (02:40→23:05)
[2020-06-15 03:05] LABS: Eosinophils # 0.1 10*3/uL (0.0-0.87); Eosinophils % 1.1 % (0.00-10.9); Hematocrit 24.8 VOL% (42.0-52.0); Hemoglobin 8.3 GM/DL (14.0-18.0); Immature Granulocytes % 3.1 %; Immature Granulocytes Absolute 0.19 #; Lymphocytes # 0.4 10*3/uL (1.4-4.0); Lymphocytes % 6.8 % (21.2-54.2); Mean Corpuscular HGB Conc 33.5 GM/DL (32-36); Mean Platelet Volume 12.4 FL (9.6-12.0); Monocytes % 7.2 % (1.7-12.7); Neutrophils % 81.8 % (38.7-73.9); Platelet Count 162 T/CUMM (130-400); Red Blood Count 2.48 MC/CUMM (3.8-5.5); Red Cell Distribution Width 12.9 % (9.3-17.3); White Blood Count 6.2 T/CUMM (4-12)
[2020-06-15 03:28] LABS: Albumin 1.9 G/DL (3.4-5.0); Bilirubin,Total 0.4 MG/DL (0.2-1.0); Calcium 7.5 MG/DL (8.5-10.1); Osmolality,Calculated 307.4 MOS/KG (273-304); Total Protein 6.8 G/DL (6.4-8.3)
[2020-06-15 04:42] LABS: ABG Base Excess -5.9 MMOL/L (-2.5-2.5); ABG HCO3 19.5 MMOL/L (20-26); ABG PCO2 37.5 MM HG (35-48); ABG PH 7.333 (7.35-7.45); ABG PO2 93.4 MM HG (80-95); ABG TCO2 20.6 MMOL/L (23-27)
[2020-06-15 04:43] LABS: Allen Test Positive; Pt O2 Delivery Device Ventilator
[2020-06-15] MEDS ORDERED: HEPARIN 5,000 UNIT/1 ML VIAL IV ONE ×2 (05:13→23:04)
[2020-06-15] MEDS: PANTOPRAZOLE 40 MG VIAL IV SCH (08:56)
[2020-06-15] MEDS: calcitrioL 0.25 MCG CAPSULE PO SCH (08:56)
[2020-06-15] MEDS: SODIUM CHLORIDE 0.9% 1,000 ML IV SCH ×2 (12:09→13:17)
[2020-06-15] MEDS: PIPERACILLIN/TAZOBACTAM 3,375 MG in SODIUM CHLORIDE 0.9% 100 ML IV SCH ×2 (13:13→23:36)
[2020-06-15] MEDS: INSULIN GLARGINE 100 UNIT/ML SUBCUT SCH (20:27)
[2020-06-15] MEDS: GABAPENTIN 50 MG/ML 30 ML/BOTTLE PER TUBE SCH (20:30)
[2020-06-16] MEDS: INSULIN LISPRO 100 UNIT/ML SUBCUT SCH ×4 (00:50→17:25)
[2020-06-16 04:08] LABS: ABG Base Excess 0.1 MMOL/L (-2.5-2.5); ABG HCO3 24.4 MMOL/L (20-26); ABG Oxygen Saturation 92.1 % (95-100); ABG PCO2 40.7 MM HG (35-48); ABG PH 7.395 (7.35-7.45); ABG TCO2 23.3 MMOL/L (23-27); Allen Test Positive; Pt O2 Delivery Device Ventilator
[2020-06-16 05:17] LABS: Basophils % 0.1 % (0.0-0.8); Eosinophils # 0.2 10*3/uL (0.0-0.87); Eosinophils % 3.1 % (0.00-10.9); Hematocrit 23.2 VOL% (42.0-52.0); Hemoglobin 7.6 GM/DL (14.0-18.0); Immature Granulocytes % 1.8 %; Immature Granulocytes Absolute 0.14 #; Lymphocytes # 1.3 10*3/uL (1.4-4.0); Mean Corpuscular HGB Conc 32.8 GM/DL (32-36); Mean Corpuscular Volume 102.2 FL (87-102); Monocytes % 9.4 % (1.7-12.7); Neutrophils % 69.6 % (38.7-73.9); Platelet Count 144 T/CUMM (130-400); Red Blood Count 2.27 MC/CUMM (3.8-5.5); Red Cell Distribution Width 13.3 % (9.3-17.3); White Blood Count 7.9 T/CUMM (4-12)
[2020-06-16 05:42] LABS: Osmolality,Calculated 296.8 MOS/KG (273-304)
[2020-06-16 05:45] LABS: Band Neutrophils 3 % (0-10); Eosinophils 2 % (0-10); Hypochromasia 2+; Lymphocytes 16 % (20-55); Microcytosis 1+; Platelet Estimate Adequate; Segmented Neutrophils 70 % (50-85); Total Cells Counted 100
[2020-06-16] MEDS: calcitrioL 0.25 MCG CAPSULE PO SCH (08:07)
[2020-06-16] MEDS: PANTOPRAZOLE 40 MG VIAL IV SCH (08:07)
[2020-06-16] MEDS: HEPARIN DRIP 25,000 UNITS/500 ML PREMIX IV SCH ×2 (10:00→12:35)
[2020-06-16] MEDS: PIPERACILLIN/TAZOBACTAM 3,375 MG in SODIUM CHLORIDE 0.9% 100 ML IV SCH (12:59)
[2020-06-16] MEDS: SODIUM CHLORIDE 0.9% 1,000 ML IV SCH (13:00)
[2020-06-16] MEDS: INSULIN GLARGINE 100 UNIT/ML SUBCUT SCH (21:24)
[2020-06-16] MEDS: GABAPENTIN 50 MG/ML 30 ML/BOTTLE PER TUBE SCH (21:24)
[2020-06-17] MEDS: MIDAZOLAM 100 MG in SODIUM CHLORIDE 0.9% 80 ML IV PRN (00:05)
[2020-06-17] MEDS: INSULIN LISPRO 100 UNIT/ML SUBCUT SCH ×4 (00:49→17:02)
[2020-06-17] MEDS: PIPERACILLIN/TAZOBACTAM 3,375 MG in SODIUM CHLORIDE 0.9% 100 ML IV SCH ×2 (00:49→12:56)
[2020-06-17 02:53] LABS: ABG Base Excess -3.5 MMOL/L (-2.5-2.5); ABG HCO3 21.5 MMOL/L (20-26); ABG PCO2 38.3 MM HG (35-48); ABG PH 7.367 (7.35-7.45); ABG PO2 102.2 MM HG (80-95); ABG TCO2 22.7 MMOL/L (23-27); Allen Test Positive; Pt O2 Delivery Device Ventilator
[2020-06-17 05:21] LABS: Basophils % 0.4 % (0.0-0.8); Eosinophils # 0.3 10*3/uL (0.0-0.87); Eosinophils % 3.9 % (0.00-10.9); Hematocrit 22.2 VOL% (42.0-52.0); Hemoglobin 7.2 GM/DL (14.0-18.0); Immature Granulocytes % 1.3 %; Immature Granulocytes Absolute 0.09 #; Lymphocytes # 0.7 10*3/uL (1.4-4.0); Lymphocytes % 10.2 % (21.2-54.2); Mean Corpuscular HGB Conc 32.4 GM/DL (32-36); Mean Corpuscular Volume 102.8 FL (87-102); Mean Platelet Volume 12.8 FL (9.6-12.0); Neutrophils % 76.2 % (38.7-73.9); Platelet Count 132 T/CUMM (130-400); Red Blood Count 2.16 MC/CUMM (3.8-5.5); Red Cell Distribution Width 13.2 % (9.3-17.3); White Blood Count 7.2 T/CUMM (4-12)
[2020-06-17 05:35] LABS: Calcium 7.1 MG/DL (8.5-10.1)
[2020-06-17 06:03] LABS: Anisocytosis 2+; Band Neutrophils 5 % (0-10); Eosinophils 5 % (0-10); Hypochromasia 1+; Lymphocytes 10 % (20-55); Macrocytosis 2+; Platelet Estimate Decreased; Segmented Neutrophils 74 % (50-85); Total Cells Counted 100
[2020-06-17] MEDS: calcitrioL 0.25 MCG CAPSULE PO SCH (08:50)
[2020-06-17] MEDS: PANTOPRAZOLE 40 MG VIAL IV SCH (08:51)
[2020-06-17] MEDS: SODIUM CHLORIDE 0.9% 1,000 ML IV SCH (10:21)
[2020-06-17] MEDS: HEPARIN DRIP 25,000 UNITS/500 ML PREMIX IV SCH (10:27)
[2020-06-17] MEDS ORDERED: SODIUM CHLORIDE 0.9% 1,000 ML IV PRN (10:36)
[2020-06-17] MEDS ORDERED: HEPARIN 5,000 UNIT/1 ML VIAL IV ONE (18:11)
[2020-06-17] MEDS: GABAPENTIN 50 MG/ML 30 ML/BOTTLE PER TUBE SCH (20:18)
[2020-06-17] MEDS: INSULIN GLARGINE 100 UNIT/ML SUBCUT SCH (21:10)
[2020-06-18] MEDS: PIPERACILLIN/TAZOBACTAM 3,375 MG in SODIUM CHLORIDE 0.9% 100 ML IV SCH ×2 (00:15→11:16)
[2020-06-18] MEDS: INSULIN LISPRO 100 UNIT/ML SUBCUT SCH ×4 (01:01→17:08)
[2020-06-18] MEDS: HEPARIN 5,000 UNIT/1 ML VIAL IV PRN ×2 (02:18→17:40)
[2020-06-18] MEDS: HEPARIN DRIP 25,000 UNITS/500 ML PREMIX IV SCH (04:01)
[2020-06-18 04:29] LABS: Basophils # 0.1 10*3/uL (0.0-0.2); Basophils % 0.5 % (0.0-0.8); Eosinophils # 0.3 10*3/uL (0.0-0.87); Eosinophils % 2.9 % (0.00-10.9); Hematocrit 27.6 VOL% (42.0-52.0); Immature Granulocytes % 1.1 %; Lymphocytes # 0.8 10*3/uL (1.4-4.0); Mean Corpuscular HGB Conc 33.7 GM/DL (32-36); Mean Corpuscular Volume 98.9 FL (87-102); Mean Platelet Volume 12.6 FL (9.6-12.0); Monocytes % 8.9 % (1.7-12.7); Neutrophils % 78.6 % (38.7-73.9); Platelet Count 138 T/CUMM (130-400); Red Blood Count 2.79 MC/CUMM (3.8-5.5); Red Cell Distribution Width 13.6 % (9.3-17.3); White Blood Count 9.5 T/CUMM (4-12)
[2020-06-18 04:32] LABS: Hemoglobin 9.3 GM/DL (14.0-18.0)
[2020-06-18 04:36] LABS: Allen Test Positive; Pt O2 Delivery Device Ventilator
[2020-06-18 04:41] LABS: ABG Base Excess -1.8 MMOL/L (-2.5-2.5); ABG HCO3 23.1 MMOL/L (20-26); ABG PCO2 39.7 MM HG (35-48); ABG PH 7.382 (7.35-7.45); ABG PO2 83.8 MM HG (80-95); ABG TCO2 24.3 MMOL/L (23-27)
[2020-06-18 04:43] LABS: ABG Oxygen Saturation 96.2 % (95-100)
[2020-06-18 04:48] LABS: Calcium 7.6 MG/DL (8.5-10.1)
[2020-06-18] MEDS: calcitrioL 0.25 MCG CAPSULE PO SCH (08:16)
[2020-06-18] MEDS: PANTOPRAZOLE 40 MG VIAL IV SCH (08:16)
[2020-06-18] MEDS: SODIUM CHLORIDE 0.9% 1,000 ML IV SCH (11:04)
[2020-06-18] MEDS ORDERED: HEPARIN 5,000 UNIT/1 ML VIAL IV PRN (17:18)
[2020-06-18] MEDS: INSULIN GLARGINE 100 UNIT/ML SUBCUT SCH (20:26)
[2020-06-18] MEDS: GABAPENTIN 50 MG/ML 30 ML/BOTTLE PER TUBE SCH (22:26)
[2020-06-19] MEDS: INSULIN LISPRO 100 UNIT/ML SUBCUT SCH ×4 (00:11→18:14)
[2020-06-19] MEDS: PIPERACILLIN/TAZOBACTAM 3,375 MG in SODIUM CHLORIDE 0.9% 100 ML IV SCH ×2 (01:15→13:20)
[2020-06-19 04:16] LABS: Basophils # 0.1 10*3/uL (0.0-0.2); Basophils % 0.4 % (0.0-0.8); Eosinophils # 0.3 10*3/uL (0.0-0.87); Eosinophils % 2.6 % (0.00-10.9); Hematocrit 28.4 VOL% (42.0-52.0); Hemoglobin 9.2 GM/DL (14.0-18.0); Immature Granulocytes % 0.5 %; Immature Granulocytes Absolute 0.06 #; Lymphocytes # 0.7 10*3/uL (1.4-4.0); Lymphocytes % 5.7 % (21.2-54.2); Mean Corpuscular HGB Conc 32.4 GM/DL (32-36); Mean Corpuscular Volume 102.2 FL (87-102); Mean Platelet Volume 11.8 FL (9.6-12.0); Monocytes % 9.3 % (1.7-12.7); Neutrophils % 81.5 % (38.7-73.9); Platelet Count 157 T/CUMM (130-400); Red Blood Count 2.78 MC/CUMM (3.8-5.5); Red Cell Distribution Width 13.8 % (9.3-17.3); White Blood Count 11.6 T/CUMM (4-12)
[2020-06-19 04:36] LABS: Calcium 8.1 MG/DL (8.5-10.1); Osmolality,Calculated 283.4 MOS/KG (273-304)
[2020-06-19 04:45] LABS: Hypochromasia 1+; Macrocytosis 1+
[2020-06-19 04:46] LABS: Platelet Estimate Adequate
[2020-06-19 04:47] LABS: ABG Base Excess -4.8 MMOL/L (-2.5-2.5); ABG HCO3 21.5 MMOL/L (20-26); ABG Oxygen Saturation 98.5 % (95-100); ABG PCO2 44.7 MM HG (35-48); ABG PH 7.299 (7.35-7.45); ABG PO2 152.9 MM HG (80-95); ABG TCO2 22.8 MMOL/L (23-27); Allen Test Positive; Pt O2 Delivery Device BIPAP
[2020-06-19] MEDS: HEPARIN DRIP 25,000 UNITS/500 ML PREMIX IV SCH ×2 (07:29→17:58)
[2020-06-19] MEDS: calcitrioL 0.25 MCG CAPSULE PO SCH (08:03)
[2020-06-19] MEDS: PANTOPRAZOLE 40 MG VIAL IV SCH (08:04)
[2020-06-19] MEDS: HEPARIN 5,000 UNIT/1 ML VIAL IV PRN (13:23)
[2020-06-19] MEDS: SODIUM CHLORIDE 0.9% 1,000 ML IV SCH (17:59)
[2020-06-19] MEDS: GABAPENTIN 50 MG/ML 30 ML/BOTTLE PER TUBE SCH (22:23)
[2020-06-19] MEDS: INSULIN GLARGINE 100 UNIT/ML SUBCUT SCH (22:28)
[2020-06-20] MEDS: INSULIN LISPRO 100 UNIT/ML SUBCUT SCH ×4 (00:01→18:37)
[2020-06-20] MEDS: PIPERACILLIN/TAZOBACTAM 3,375 MG in SODIUM CHLORIDE 0.9% 100 ML IV SCH ×2 (00:21→11:17)
[2020-06-20] MEDS: HEPARIN 5,000 UNIT/1 ML VIAL IV PRN (02:53)
[2020-06-20 04:43] LABS: Basophils # 0.1 10*3/uL (0.0-0.2); Basophils % 0.8 % (0.0-0.8); Eosinophils # 0.4 10*3/uL (0.0-0.87); Eosinophils % 4.9 % (0.00-10.9); Hematocrit 27.7 VOL% (42.0-52.0); Hemoglobin 8.9 GM/DL (14.0-18.0); Immature Granulocytes % 0.6 %; Immature Granulocytes Absolute 0.05 #; Lymphocytes # 0.9 10*3/uL (1.4-4.0); Lymphocytes % 11.5 % (21.2-54.2); Mean Corpuscular HGB Conc 32.1 GM/DL (32-36); Mean Platelet Volume 12.2 FL (9.6-12.0); Monocytes % 12.6 % (1.7-12.7); Neutrophils % 69.6 % (38.7-73.9); Platelet Count 170 T/CUMM (130-400); Red Blood Count 2.69 MC/CUMM (3.8-5.5); Red Cell Distribution Width 13.7 % (9.3-17.3); White Blood Count 7.7 T/CUMM (4-12)
[2020-06-20 04:59] LABS: Calcium 8.3 MG/DL (8.5-10.1)
[2020-06-20 05:11] LABS: Hypochromasia 1+; Macrocytosis Slight; Platelet Estimate Adequate
[2020-06-20] MEDS: PANTOPRAZOLE 40 MG VIAL IV SCH (08:40)
[2020-06-20] MEDS: calcitrioL 0.25 MCG CAPSULE PO SCH (08:41)
[2020-06-20] MEDS: HEPARIN DRIP 25,000 UNITS/500 ML PREMIX IV SCH (11:10)
[2020-06-20] MEDS: SODIUM CHLORIDE 0.9% 1,000 ML IV SCH (11:21)
[2020-06-20] MEDS: ENOXAPARIN 100 MG/ML SYRINGE SUBCUT SCH (11:28)
[2020-06-20] MEDS: GABAPENTIN 50 MG/ML 30 ML/BOTTLE PER TUBE SCH (21:40)
[2020-06-20] MEDS: INSULIN GLARGINE 100 UNIT/ML SUBCUT SCH (22:50)
[2020-06-21] MEDS: INSULIN LISPRO 100 UNIT/ML SUBCUT SCH ×4 (00:28→18:48)
[2020-06-21] MEDS: PIPERACILLIN/TAZOBACTAM 3,375 MG in SODIUM CHLORIDE 0.9% 100 ML IV SCH ×2 (00:31→12:47)
[2020-06-21 04:23] LABS: Basophils # 0.1 10*3/uL (0.0-0.2); Basophils % 1.4 % (0.0-0.8); Eosinophils # 0.5 10*3/uL (0.0-0.87); Eosinophils % 9.2 % (0.00-10.9); Hemoglobin 8.5 GM/DL (14.0-18.0); Immature Granulocytes % 0.5 %; Immature Granulocytes Absolute 0.03 #; Lymphocytes # 0.8 10*3/uL (1.4-4.0); Lymphocytes % 14.2 % (21.2-54.2); Mean Corpuscular HGB Conc 32.7 GM/DL (32-36); Mean Corpuscular Volume 100.4 FL (87-102); Mean Platelet Volume 11.7 FL (9.6-12.0); Monocytes % 16.3 % (1.7-12.7); Neutrophils % 58.4 % (38.7-73.9); Platelet Count 150 T/CUMM (130-400); Red Blood Count 2.59 MC/CUMM (3.8-5.5); Red Cell Distribution Width 13.4 % (9.3-17.3); White Blood Count 5.6 T/CUMM (4-12)
[2020-06-21 04:41] LABS: Calcium 8.1 MG/DL (8.5-10.1)
[2020-06-21 04:45] LABS: Eosinophils 10 % (0-10); Lymphocytes 8 % (20-55); Platelet Estimate Adequate; Segmented Neutrophils 68 % (50-85); Total Cells Counted 100
[2020-06-21 04:46] LABS: Hypochromasia 1+; Microcytosis 1+; Ovalocytes Slight
[2020-06-21] MEDS: PANTOPRAZOLE 40 MG VIAL IV SCH ×2 (09:57→10:00)
[2020-06-21] MEDS: calcitrioL 0.25 MCG CAPSULE PO SCH (09:57)
[2020-06-21] MEDS: ENOXAPARIN 100 MG/ML SYRINGE SUBCUT SCH (10:01)
[2020-06-21] MEDS: SODIUM CHLORIDE 0.9% 1,000 ML IV SCH (12:14)
[2020-06-21] MEDS: CALCIUM ACETATE 667 MG CAPSULE PO SCH (17:31)
[2020-06-21] MEDS: GABAPENTIN 50 MG/ML 30 ML/BOTTLE PER TUBE SCH (21:36)
[2020-06-21 22:07] LABS: Allen Test Positive
[2020-06-21 22:08] LABS: ABG Base Excess -4.1 MMOL/L (-2.5-2.5); ABG HCO3 20.9 MMOL/L (20-26); ABG Oxygen Saturation 90.9 % (95-100); ABG PCO2 41.2 MM HG (35-48); ABG PH 7.327 (7.35-7.45); ABG PO2 66.6 MM HG (80-95)
[2020-06-22] MEDS: INSULIN GLARGINE 100 UNIT/ML SUBCUT SCH (00:49)
[2020-06-22] MEDS: INSULIN LISPRO 100 UNIT/ML SUBCUT SCH ×5 (00:50→20:43)
[2020-06-22] MEDS: PIPERACILLIN/TAZOBACTAM 3,375 MG in SODIUM CHLORIDE 0.9% 100 ML IV SCH ×3 (00:52→23:44)
[2020-06-22 07:00] LABS: Calcium 8.1 MG/DL (8.5-10.1); Osmolality,Calculated 280.2 MOS/KG (273-304)
[2020-06-22] MEDS: CALCIUM ACETATE 667 MG CAPSULE PO SCH ×3 (08:02→17:10)
[2020-06-22] MEDS: calcitrioL 0.25 MCG CAPSULE PO SCH (08:02)
[2020-06-22] MEDS: PANTOPRAZOLE 40 MG VIAL IV SCH (08:02)
[2020-06-22] MEDS ORDERED: amLODIPine 10 MG TABLET PO ONE (10:36)
[2020-06-22] MEDS: HEPARIN 5,000 UNIT/1 ML VIAL SUBCUT SCH ×2 (11:00→18:07)
[2020-06-22] MEDS: SODIUM CHLORIDE 0.9% 1,000 ML IV SCH (11:36)
[2020-06-22] MEDS: carvediloL 3.125 MG TABLET PO SCH (20:42)
[2020-06-22] MEDS: GABAPENTIN 50 MG/ML 30 ML/BOTTLE PER TUBE SCH (20:42)
[2020-06-22] MEDS ORDERED: INSULIN GLARGINE 100 UNIT/ML SUBCUT SCH (21:00)
[2020-06-23] MEDS: ACETAMINOPHEN 325 MG TABLET PO PRN (00:56)
[2020-06-23] MEDS: HEPARIN 5,000 UNIT/1 ML VIAL SUBCUT SCH ×2 (02:43→13:14)
[2020-06-23 05:48] LABS: Basophils # 0.1 10*3/uL (0.0-0.2); Basophils % 1.2 % (0.0-0.8); Eosinophils # 0.4 10*3/uL (0.0-0.87); Eosinophils % 7.3 % (0.00-10.9); Hematocrit 24.9 VOL% (42.0-52.0); Immature Granulocytes % 0.3 %; Immature Granulocytes Absolute 0.02 #; Lymphocytes # 1.3 10*3/uL (1.4-4.0); Lymphocytes % 20.8 % (21.2-54.2); Mean Corpuscular HGB Conc 32.1 GM/DL (32-36); Mean Platelet Volume 11.7 FL (9.6-12.0); Monocytes % 15.4 % (1.7-12.7); Platelet Count 128 T/CUMM (130-400); Red Blood Count 2.44 MC/CUMM (3.8-5.5); Red Cell Distribution Width 13.3 % (9.3-17.3); White Blood Count 6.1 T/CUMM (4-12)
[2020-06-23 05:58] LABS: Calcium 8.6 MG/DL (8.5-10.1)
[2020-06-23 06:10] LABS: Hypochromasia 1+; Macrocytosis Slight; Platelet Estimate Adequate
[2020-06-23] MEDS: amLODIPine 10 MG TABLET PO SCH (08:47)
[2020-06-23] MEDS: CALCIUM ACETATE 667 MG CAPSULE PO SCH ×2 (08:47→13:14)
[2020-06-23] MEDS: calcitrioL 0.25 MCG CAPSULE PO SCH (08:48)
[2020-06-23] MEDS: carvediloL 3.125 MG TABLET PO SCH (08:48)
[2020-06-23] MEDS: INSULIN LISPRO 100 UNIT/ML SUBCUT SCH ×2 (08:48→11:17)
[2020-06-23] MEDS: PIPERACILLIN/TAZOBACTAM 3,375 MG in SODIUM CHLORIDE 0.9% 100 ML IV SCH (11:17)
[2020-06-23 11:28] VITALS: BP 110/47
== END 2020-06-23 14:06 | disposition home health service (06) | DRG 870 ==
LOC: N.ED 18:14 → N.EDINP 20:55 → SUATTDRO 20:55 → N.2E 06-04 02:08 → N.CC 06-06 16:54 → N.5E 06-22 14:52
PROVIDERS: ADMIT Internal Medicine Geriatric Medicine; ATTEND Internal Medicine